=== PATIENT | female | born 1955 | race Caucasian/White ===

== ENCOUNTER 2025-08-17 04:01 | Inpatient (IN) | payer MEDICARE ==
[2025-08-17] VITALS (7 sets, daily range): BP systolic 113–126; BP diastolic 59–71; PULSE 64–118; RESP 12–30; TEMP 97.1–98.4; O2SAT 96–100
[~2025-08-17] VITALS: Ht 162.6 cm; Wt 96.3 kg
--- NOTE | 2025-08-17 04:08 | Physician Documentation ---
History of Present Illness ~ Stated Complaint: MULTIPLE COMPLAINTS Time Seen by MD: 04:05 HPI Patient presents to the emergency room as a transfer from [facility] for acute kidney injury. Patient initially presented to their facility for concerns of diarrhea been on the past week leading to weakness and falls at home. Patient was found covered in feces. Found to be significant hyperkalemia in management of hyperkalemia was initiated with improvement. Of note patient was found to be hypotensive by transfer crew he had began Levophed in route. Patient given antibiotics for cellulitis of the lower extremities. She has received 3 L of IV fluids. Medication Reconciliation Allergies: Coded Allergies: Penicillins (Verified Allergy, Unknown, 08/17/25) codeine (Verified Allergy, Unknown, 08/17/25) levofloxacin (Verified Allergy, Unknown, 08/17/25) morphine (Verified Allergy, Unknown, 08/17/25) Scheduled Atorvastatin Calcium* (Lipitor*), 1 TAB PO HS, (Reported) Clopidogrel Bisulfate (Clopidogrel), 1 TAB PO DAILY, (Reported) Review of Systems ROS All review of systems negative except as per HPI Physical Exam Physical Exam General: Patient is ill-appearing, slow to respond but appropriate. Head: Normocephalic and atraumatic. Eyes: Conjunctival normal. EOMI. PERRL. ENT: Mucous membranes moist. Neck: Supple, trachea is midline. Chest: Clear to auscultation bilaterally without rales, rhonchi, or wheezes. There is no accessory muscle use or retractions. Cardiac: RRR without murmurs, gallops, or rubs. Abd: Soft, nondistended, nontender, with normoactive bowel sounds. No guarding, rebound, or rigidity. Extremities: Chronic appearing cellulitic infections of bilateral lower extremities along with pressure ulcers on heels Back: Partial-thickness pressure ulcer on coccyx. Progress Results/Orders Results/Orders Orders - JUNIOR WELCH MD Monitor (08/17/25 04:03) Saline Lock (08/17/25 04:03) Oxygen (08/17/25 04:03) Chest,Single View (08/17/25 04:30) Culture Blood (08/17/25 04:24) Completed Orders - JUNIOR WELCH MD Cbc/Diff (08/17/25 04:03) BMP (08/17/25 04:03) PBNP (08/17/25 04:03) Electrocardiogram (08/17/25 04:03) Hs Troponin I W Calculations (08/17/25 04:03) Hs Troponin I W Calculations (08/17/25 06:03) Hs Troponin I W Calculations (08/17/25 07:03) MG (08/17/25 04:05) Norepinephrine 32mg/250ml Bag (Norepinep (08/17/25 04:10) Chest,Single View (08/17/25 04:30) Dextrose 50%-Water (Dextrose 50%-Water S (08/17/25 04:15) Norepinephrine 8mg/ 250ml Ns (Norepineph (08/17/25 04:20) Procalcitonin (08/17/25 04:24) Lacticsepsis (08/17/25 04:24) Ceftriaxone/S4c-Riwwxjlu 1gm (Rocephin 1 (08/17/25 05:40) Normal Saline 1000ml (0.9% Sodium Chlori (08/17/25 05:47) Dexamethasone Inj (Decadron 10mg/Ml Inj) (08/17/25 06:02) Vital Signs 08/17/25 08/17/25 08/17/25 08/17/25 04:02 04:28 04:30 04:46 Temp 98.4 96.1 Pulse 106 110 100 Resp 12 17 30 12 B/P (MAP) 141/99 107/81 (90) 126/71 (89) 87/43 (58) Pulse Ox 100 99 100 100 O2 Delivery Room Air O2 Flow Rate 5.0 2.0 08/17/25 08/17/25 08/17/25 08/17/25 05:02 05:19 06:14 06:48 Pulse 89 93 99 Resp 17 10 12 13 B/P (MAP) 100/51 (67) 85/45 (58) 105/28 (53) Pulse Ox 100 99 96 O2 Flow Rate 0 0 08/17/25 08/17/25 08:07 09:46 Pulse 82 82 Resp 12 22 B/P (MAP) 105/54 (71) 118/60 (79) Pulse Ox 96 100 Laboratory Tests Test 08/17/25 04:11 08/17/25 04:30 08/17/25 04:40 08/17/25 06:16 Glucometer 69 L 167 H 117 H White Blood Count 13.1 H Red Blood Count 3.51 L Hemoglobin 10.2 L Hematocrit 32.9 L Mean Corpuscular Volume 93.8 Mean Corpuscular Hemoglobin 28.9 Mean Corpuscular Hemoglobin Concent 30.9 L Red Cell Distribution Width 19.4 H Platelet Count 104 L Mean Platelet Volume 7.8 Neutrophils (%) (Auto) 90.3 H Lymphocytes (%) (Auto) 3.9 L Monocytes (%) (Auto) 5.3 Eosinophils (%) (Auto) 0.2 Basophils (%) (Auto) 0.3 Neutrophils # (Auto) 11.8 H Lymphocytes # (Auto) 0.5 L Monocytes # (Auto) 0.7 Eosinophils # (Auto) 0.0 Basophils # (Auto) 0.0 CBC Comment Sodium Level 134 L Potassium Level 6.3 *H Chloride Level 104 Carbon Dioxide Level 16.0 L Anion Gap 14 Blood Urea Nitrogen 70 H Creatinine 3.71 H Estimated GFR/1.73 m2 12 BUN/Creatinine Ratio 18.9 Glucose Level 231 H Calcium Level 7.3 L Magnesium Level 2.3 Troponin I High Sensitivity 12 Pro-B-Type Natriuretic Peptide 8613 H Albumin 1.9 L Procalcitonin 0.69 H Chemistry Comments Test 08/17/25 06:38 08/17/25 07:06 08/17/25 08:01 08/17/25 10:16 Lactic Acid Level 1.3 Phosphorus Level 6.0 H Troponin I High Sensitivity 13 13 Troponin I High Sens Percent Delta 8 0 Troponin I Hi Sens Absolute Change 1 0 Glucometer 117 H Urine Specimen Description Slaughter cath Urine Color Yellow Urine Clarity Clear Urine pH 6.0 Urine Specific [place] 1.010 Urine Protein Trace Urine Glucose (UA) Negative Urine Ketones Negative Urine Occult Blood Trace-intact Urine Nitrite Negative Urine Bilirubin Negative Urine Urobilinogen 0.2 Urine Leukocyte Esterase Small H Urine RBC 3-10 Urine WBC 30-50 H Urine Squamous Epithelial Cells Few Urine Transitional Epithelial Cells Few Urine Bacteria 3+ Urine Mucus Few Urine Culture Indicated Indicated Volume Urine Centrifuged 10 ml Urine Comment Urine Opiates Screen Negative Urine Methadone Screen Negative Urine Fentanyl Screen Negative Urine Barbiturates Screen Negative Urine Phencyclidine Screen Negative Urine Amphetamines Screen Negative Urine Benzodiazepines Screen Negative Urine Cocaine Screen Negative Urine Cannabinoids Screen Negative Drug Screen Comment Microbiology Date/Time Source Procedure Growth Status 08/17/25 06:11 Blood Arm Right Blood Culture - Preliminary NEGATIVE (LESS THAN 24 HOURS) Resulted EKG/XRAY/CT/US/VASC/MRI EKG : Additional Comment EKG interpreted by myself shows time of 0408, rate 103, sinus tachycardia, normal axis, no ST changes Medical Decision Making Additional information obtaine: old records Findings Patient presents to the emergency room for evaluation of acute kidney injury transferred from [facility]. Patient arrived on Levophed and wass hypotensive and altered. She is having a problem with hypoglycemia and responded well to sugar boluses. Levophed has been weaned off but remains borderline. Rocephin added. Oncoming physician to take over case. General Diff Dx:Considerations: Include: Abrasion, Contusion, Fracture, Hematoma, Laceration, Malunion, Neurovascular injury, Open fracture, Sprain, Ulcer, Other Knee Diff Dx:Considerations: Include: Abrasion, Arthritis, Contusion, DJD, Fr acture-femur, Fracture-fibula, Fracture-patella, Fracture-tibia, Gout, Hematoma, Laceration, Meniscus injury, Neurovascular injury, Open fracture, Rheumatoid arthritis, Septic, Sprain, Sprain-MCL, Sprain-LCL, Sprain-ACL, Sprain-PCL, Other Ankle Diff Dx:Considerations: Include: Abrasion, Arthritis, Contusion, DJD, Fracture-metatarsal, Fracture-fibula, Fracture-tarsal, Fracture-tibia, Gout, Hematoma, Laceration, Malunion, Neurovascular injury, Nonunion, Open fracture, Osteomyelitis, Rheumatoid arthritis, Sprain, Septic, Ulcer, Other Foot Diff Dx:Considerations: Include: Abrasion, Arthritis, Cellulitis, Contusion, Dislocation, DJD, Fracture-metatarsal, Fracture-phalynx, Fracture- tarsal, Gout, Hematoma, Ingrown toenail, Laceration, Malunion, Neurovascular injury, Open fracture, Paronychia, Puncture, Rheumatoid, Sprain, Septic, Subungual hematoma, Ulcer, Other Toe Diff Dx:Considerations: Include: Abrasion, Cellulitis, Contusion, Dislocation, Felon, Fracture, Hematoma, Laceration, Neurovascular injury, Open fracture, Paronychia, Subungual hematoma, Other Departure Admitted to Inpatient Unit: yes, to hospitalist Impression: Primary Impression: Acute kidney injury Additional Impressions: Metabolic encephalopathy Sepsis Decubitus ulcer Hyperkalemia Referrals: NO PRIMARY CARE PROVIDER (PCP) Critical Care Note Total Time (mins): 45 Critical Care Note The very real possibility of a deterioration of this patient's condition required the highest level of my preparedness for sudden, emergent intervention. I provided critical care services, which included medication orders, frequent reevaluations of the patient's condition and response to treatment, ordering and reviewing test results, and discussing the case with various consultants. Excludes time spent performing separately billable procedures. The critical care time associated with the care of the patient was 45 minutes not counting procedures Signature Scribe Signature: No scribe Attestation: The note accurately reflects work and decisions made by me.Junior Welch MD 08/17/25 18:31 JUNIOR WELCH MD Aug 17, 2025 04:08
[2025-08-17] MEDS ORDERED: NORepinephrine 32mg/250mL bag 250 ML IV SCH (04:10)
[2025-08-17] MEDS: dextrose 50%-water 50ml dispensing syringe IV ONE ×2 (04:18→12:07)
[2025-08-17] MEDS: NORepinephrine 8mg/ 250ml NS 250 ML IV ONE (04:20)
--- NOTE | 2025-08-17 04:47 | ELECTROCARDIOGRAPH REPORT ---
[facility] Test Date: 2025-08-17 Test Time: 04:08:55 Pat Name: AV SWAN Department: EMERGENCY ROOM Room: [place] [address] Gender: F Acoustic Engineer: : [id number] Requested By: EDI COLON Order Number: [id number] Reading MD: Dr. Artemio Fernandez Measurements Intervals [place] Rate: 103 P: 131 AL: 172 QRS: 124 QRSD: 98 T: 57 QT: 364 QTc: 477 Interpretive Statements Right and left arm electrode reversal, interpretation assumes no reversal Sinus tachycardia Anterior infarct, old Borderline ST depression, diffuse leads Electronically Signed On 08-19-2025 7:41:[address] Artemio Fernandez Please click the below link to view image of tracing.
--- NOTE | 2025-08-17 04:47 | RADIOLOGY REPORT ---
CHEST RADIOGRAPH Indication: admission Technique: Single frontal view of the chest was obtained COMPARISON: None FINDINGS: Lines and Tubes: None Lungs: Clear Pleura: No effusion. No pneumothorax. Cardiomediastinal contours: Cardiomegaly status post median sternotomy. Bones: Unremarkable IMPRESSION: 1. Cardiomegaly.
[2025-08-17] MEDS: normal saline 1000ML IV soln IVB STA (05:51)
[2025-08-17] MEDS ORDERED: CLOP75TA33 PO (05:52)
[2025-08-17] MEDS ORDERED: ATOR40TA PO (05:52)
[2025-08-17 05:57] LABS: CREATININE 3.71 MG/DL (0.40-0.90); PRO BRAIN NATRIURETIC PEPTIDE 8613 PG/ML (0-125); TOTAL CARBON DIOXIDE 16.0 MMOL/L (24-32); eCRCL 13 ML/MIN; eGFR 12 ML/MIN
[2025-08-17 06:01] LABS: MEAN PLATELET VOLUME 7.8 FL (7.4-10.4); RED CELL DISTRIBUTION WIDTH 19.4 % (11.5-14.5)
[2025-08-17] MEDS ORDERED: dexamethasone sod phosphate 10mg/ml inj IV STA (06:02)
[2025-08-17] MEDS: CefTRIAXone/D5W-Rocephin 1gm 50 ML IV ONE (06:08)
[2025-08-17] MEDS: dexamethasone sod phosphate 10mg/ml inj IV STA (06:11)
[2025-08-17] MEDS: sodium bicarbonate (8.4%) inj. 150 MEQ in dextrose 5%-water 1,000 ML IV SCH (06:28)
[2025-08-17] MEDS: PATIROMER CALCIUM SORBITEX 8.4 GM POWD.PACK PO ONE (06:59)
[2025-08-17] MEDS: normal saline 1000ML IV soln IVB ONE ×2 (07:27→08:31)
[2025-08-17] MEDS: glucagon, human recombinant 1mg kit IV ONE (08:32)
--- NOTE | 2025-08-17 09:48 | HISTORY AND PHYSICAL ---
History & Physical Providers to Chief complaint, Generalized weakness ~ History of Present Illness Reason for Admit\Complaint: As above History of Present Illness This is a 69 years old white female with history of chronic kidney disease stage four, used to be on hemodialysis, last hemodialysis was six months ago, as of today is not on hemodialysis, history of anemia hemoglobin 10.2, metabolic acidosis, bilateral lower extremity cellulitis, atrial fibrillation on Plavix at home, dyslipidemia, elevated phosphorous, history of diabetes mellitus type 2 poor control, CHF ejection fraction unknown, hypoalbuminemia, coronary artery disease CABG, presented today to emergency department chief complaint generalized weakness associated with altered level of consciousness and diarrhea, in addition Patient presents to the emergency room as a transfer from [facility] for acute kidney injury. Patient initially presented to their facility for concerns of diarrhea been on the past week leading to weakness and falls at home. Patient was found covered in feces. Found to be significant hyperkalemia in management of hyperkalemia was initiated with improvement. Of note patient was found to be hypotensive by transfer crew he had began Levophed in route. Patient given antibiotics for cellulitis of the lower extremities. She has received 3 L of IV fluids. In emergency department patient was evaluated by And diagnosed with sepsis, acute renal failure, started on IV antibiotics, and after consultation with metal alloy scientist, decision was made to admit patient for further evaluation and treatment . No additional complaint or concern Allergies: Coded Allergies: Penicillins (Verified Allergy, Unknown, 08/17/25) codeine (Verified Allergy, Unknown, 08/17/25) levofloxacin (Verified Allergy, Unknown, 08/17/25) morphine (Verified Allergy, Unknown, 08/17/25) Active prescriptions I reviewed reconciled Home Medications Home Medications Active Reported Clopidogrel (Clopidogrel Bisulfate) 75 Mg Tablet 1 Tab PO DAILY 30 Days Lipitor* (Atorvastatin Calcium) 40 Mg Tablet 1 Tab PO HS 30 Days Past Medical History Past Medical History As in HPI Past Surgical History Surgical History Comment As in HPI Past Social History Social History Comment Live with the family good social support deny illicit drug abuse tobacco alcohol use Health Maintenance Health Maintenance Noncontributory ROS ROS Constitutional : no fever , no chills, fatigue for weakness. No diaphoresis. Allergic/Immunologic, no lymphadenopathy, no hives, no skin eruptions. Eyes, no recent visual changes, no eye pain, no photophobia. Ears, nose, mouth, throat, no sore throat, no nosebleed, no ear pain. Cardiovascular, no palpitations, skipped beats, chest pain, no peripheral edema, Respiratory, no dyspnea, orthopnea, cough, hemoptysis, chest wall pain. Gastrointestinal, no abdominal pain, nausea, vomiting, constipation or diarrhea. : no dysuria, hematuria, pelvic pain, urethral d/c. Endocrine, no polyuria, polydipsia, recent unintentional weight gain or loss. Hematologic/Lymphatic, no petechiae, no enlarged lymph nodes, no bone pain. Integumentary, no rash, no skin lesions, Musculoskeletal, no muscle aches, or pain, no muscle cramps, no recent change in gait Neurological, no dizziness, no headache, no syncope, no paresthesia. Psychiatric, no delusions, visual hallucinations, or hearing hallucinations. ROS - in rest is as in HPI. Exam Vitals: Generalized Vital Signs Date Time Temp Pulse Resp B/P (MAP) Pulse Ox O2 Delivery O2 Flow Rate FiO2 08/17/25 09:46 82 22 118/60 (79) 100 08/17/25 06:14 0 08/17/25 04:46 96.1 Vital signs, stable ,afebrile. Pulse Oximetry reflects adequate oxygenation. BMI is 35, weight 96 kg General: well developed, well nourished. Awake , alert, and oriented x4, resting comfortably in the bed, in no acute distress . Skin: Warm, dry, no pallor, no rash or petechiae. HEENT: Atraumatic, normocephalic, EOMI, anicteric sclera B; pink conjunctiva; PERRLA, normal oropharynx, moist oral and nasal mucosa. Tympanic membrane , nose , throat clear. Neck: Trachea midline. Supple, full range of motion, no JVD, bruit , hepatojugular reflex , lymphadenopathy or masses, or other lesions Cardiac: Regular rhythm, regular rate no murmurs, rubs, or gallops. Normal S1 and S2, no S3 noticed. PMI is normal. Respiratory: Equal breath sounds bilaterally, no tachypnea; lungs clear to auscultation bilaterally, no wheezing ,rub or rales, or crackles. Chest wall is symmetric and without deformity. No signs of trauma. Chest wall is nontender. No signs of respiratory distress. Resonance is normal upon percussion bilaterally. Gastrointestinal: Abdomen symmetric, non-distended, soft, non-tender, normal bowel sounds x4 quadrant, normoactive, no hepatosplenomegaly , no masses , no bruit, no flank pain bilaterally. No voluntary guarding, rebound, or rigidity. No tenderness to percussion. No pulsatile masses. Equal femoral pulses. No Sin's sign or McBurney point tenderness. Back; no CVA tenderness bilaterally, no deformities. Neck and back are without deformity as well. No tenderness noted on palpation of the spinous processes. Spinous processes are midline. Cervical, thoracic, and lumbar paraspinal muscles are not tender and are without spasm. : Deferred by patient Musculoskeletal: Extremities, normal range of motion, non-tender, muscle strength 5/5 x 4. Negative Homans signs bilaterally on lower extremity. Distal pulses full symmetrical, no clubbing, cyanosis , , bilateral lower extremity plus four edema up to the thigh, associated with bilateral lower leg erosive dermatitis and cellulitis Neurological: Speech is clear, alert, and oriented x 4. No motor or sensory deficit, deep tendon reflexes normal, cerebellar intact. Cranial nerves II-XII intact. Psych: Alert and or appropriate, normal affect. Vascular: Good distal pulses, which are equal x4; capillary refill less than 2 seconds. Lymphatic, no lymphadenopathy. Diagnostic Data Last Recorded Lab Results: 08/17/2542908/17/25 043 Advance Care Planning Advanced Care plannin - 30 Minutes Additional Plan Assessment Complicated UTI Acute nonbloody diarrhea Bilateral lower extremity erosive dermatitis Bilateral lower extremity cellulitis Chronic kidney disease stage 4 used to be on hemodialysis, last hemodialysis six months ago Acute renal failure Hyperkalemia Sepsis Metabolic acidosis CHF in exacerbation ejection fraction unknown Diabetes mellitus type 2 poor control Additional comorbidities, hypoalbuminemia, hyperphosphatemia, atrial fibrillation on Plavix at home, dyslipidemia, anemia hemoglobin 10.2, coronary artery disease status post CABG, generalized weakness status post fall ground level mechanical, metabolic encephalopathy Plan Correct electrolytes IV antibiotics, fluids prn Nephrology Is on the case Sliding scale Wound care consult Echocardiography pending Hyperglycemia sliding scale Additional lab work pending PT evaluation and treatment I reconciled home Medications DVT gastropathy prophylaxis addressed Sepsis Screening Reassessment Date: Aug 17, 2025 Date of Service: Aug 17, 2025 Billing Provider: SHAWNA ALMEIDA MD Common Visit Codes: [id number] INP/OBS CARE (HIGH) SHAWNA ALMEIDA MD Aug 17, 2025 09:48
[2025-08-17] MEDS ORDERED: furosemide 10 MG/1 ML 10ml inj IV SCH (10:10)
[2025-08-17] MEDS ORDERED: mag hydrox/Alum hydrox/simeth 30ml oral suspension PO PRN (10:25)
[2025-08-17] MEDS ORDERED: potassium Cl 40MEQ/1/2NS 520ml 520 ML IV PRN (10:25)
[2025-08-17] MEDS ORDERED: magnesium sulf-water 2g/50mL 50 ML IV PRN (10:25)
[2025-08-17] MEDS ORDERED: magnesium Cl slow-release 64mg tablet PO PRN (10:25)
[2025-08-17] MEDS ORDERED: acetaminophen 650mg rectal suppository RC PRN (10:25)
[2025-08-17] MEDS ORDERED: magnesium sulf-water 4G/100mL 100 ML IV PRN (10:25)
[2025-08-17] MEDS ORDERED: bisacodyl 10mg suppository rectal RC PRN (10:25)
[2025-08-17] MEDS ORDERED: potassium Cl 20 mEq SR tablet PO PRN ×2 (10:25)
[2025-08-17] MEDS ORDERED: magnesium hydroxide 30ml (MOM) UD suspension PO PRN (10:25)
[2025-08-17 10:40] LABS: LEUKOCYTE ESTERASE ,URINE SMALL (Neg); NITRITES, URINE NEGATIVE (Neg); OCCULT BLOOD,URINE TRACE-INTACT (Neg)
[2025-08-17 10:42] LABS: UA COLLECTION TYPE FOLEY CATH
[2025-08-17 10:49] LABS: MUCUS STRANDS FEW /LPF (Neg); SQUAMOUS EPITHELIAL CELL,UR FEW /LPF (FEW)
[2025-08-17 10:53] LABS: URINE AMPHETAMINE SCREEN NEGATIVE (Neg); URINE BARBITUATE SCREEN NEGATIVE (Neg); URINE BENZODIAZEPINES SCREEN NEGATIVE (Neg); URINE CANNABINOID SCREEN NEGATIVE (Neg); URINE COCAINE SCREEN NEGATIVE (Neg); URINE METHADONE SCREEN NEGATIVE (Neg); URINE OPIATE SCREEN NEGATIVE (Neg); URINE PHENCYCLIDINE SCREEN NEGATIVE (Neg)
[2025-08-17] MEDS ORDERED: DEXTROSE 15 GM of carb/4 tabs (each vial/BOTTLE has 4 tablets) PO PRN ×2 (11:05)
[2025-08-17] MEDS ORDERED: glucagon, human recombinant 1mg kit SUBCUT PRN (11:05)
[2025-08-17] MEDS ORDERED: dextrose 50%-water 50ml dispensing syringe IV PRN ×2 (11:05)
[2025-08-17] MEDS ORDERED: CALCIUM GLUC 1gm/50ml NACL,iso 50 ML IV PRN (11:05)
[2025-08-17 11:08] LABS: APTT 30 SECONDS (22-32); INR 1.2 INR
--- NOTE | 2025-08-17 11:26 | CONSULTATION REPORT - RESIDENT ---
Consult Providers to CC Resident Creating Document: CHARIS LARES, RES CC: DERRELL MANLEY MD History of Present Illness Primary Medical Doctor: [facility] Reason for Admit\Complaint: LARON + CKD 4 History of Present Illness Nephrology consult: This is a 69 years old white female with history of chronic kidney disease stage 4, CAD s/p CABG in February 2025, used to be on hemodialysis, last hemodialysis was six months ago, as of today is not on hemodialysis, history of anemia hemoglobin 10.2, metabolic acidosis, bilateral lower extremity cellulitis, atrial fibrillation on Plavix at home, dyslipidemia, , history of diabetes mellitus type 2 poor control, CHF ejection fraction unknown, hypoalbuminemia, coronary artery disease CABG, transferred from [facility] in view of acute kidney injury.Patient Has a History of CKD IV and Her last dialysis was 6 months ago. Patient also has elevated K, Bilateral Lower Extremity Ulcers and Cellulitis. Patients BUN was 77, Cr-3.68, Ca-11,4, K 6.3 at [facility]. Patient Takes Metaprolol Succinate 50mg daily, Lasix 40mg Daily at home additionally takes 20mg Po when ever patient feels short of breath,Spironolactone 25mg daily for CHF We, Nephrology team evaluated the patient at bedside and recommended consideration of dialysis. She is ofcourse reluctant. Meanwhile will arrange for diuresis, and chec the echocardiogram. The patient stated that she would like some time to discuss the discussion with her before proceeding. The risk of delayed dialysis including potential worsening of renal function, fluid overload, and metabolic complications were explained to the patient in detail and she verbalized understanding of the information provided Allergies: Coded Allergies: Penicillins (Verified Allergy, Unknown, 08/17/25) codeine (Verified Allergy, Unknown, 08/17/25) levofloxacin (Verified Allergy, Unknown, 08/17/25) morphine (Verified Allergy, Unknown, 08/17/25) Home Medications Home Medications Active Reported Clopidogrel (Clopidogrel Bisulfate) 75 Mg Tablet 1 Tab PO DAILY 30 Days Lipitor* (Atorvastatin Calcium) 40 Mg Tablet 1 Tab PO HS 30 Days Past Medical History Past Medical History Congestive heart rate Diabetes mellitus type 2 Hypertension paroxysmal atrial fibrillation Past Surgical History Surgical History Comment CABG 03/17/2025 Cholecystectomy Hysterectomy Ovarian removal Shoulder arthroscopy Foot fracture surgery ROS ROS As stated above in the HPI, otherwise all systems are reviewed and negative. Exam Vitals: Vital Signs Date Time Temp Pulse Resp B/P (MAP) Pulse Ox O2 Delivery O2 Flow Rate FiO2 08/17/25 11:14 94 14 124/70 (88) 98 08/17/25 06:14 0 08/17/25 04:46 96.1 General: General: Awake, drowzy, in acute distress Head: Normocephalic and atraumatic. Eyes: Mild pallor, extraocular eye movements are intact, no icterus ENT: Mucous membranes moist, no epistaxis, Neck: Supple, trachea is midline. Chest: Clear to auscultation bilaterally without rales, rhonchi, or wheezes. There is no accessory muscle use or retractions. Cardiac: S1 and S2 heard, no murmurs, gallops, or rubs. Abd: Soft, nondistended, nontender, with normoactive bowel sounds. No guarding, rebound, or rigidity. Extremities: Chronic appearing cellulitic infections of bilateral lower extremities along with pressure ulcers on heels Back: Partial-thickness pressure ulcer on coccyx. Diagnostic Data Last Recorded Lab Results: 08/17/25 0430 08/17/25 1041 Diagnostic Data: Laboratory Tests Test 08/17/25 10:41 Prothrombin Time 12.0 SECONDS (9.0-12.0) INR International Normalized Ratio 1.2 INR Activated Partial Thromboplast Time 30 SECONDS (22-32) Coagulation Comments Additional Plan Acute kidney injury on Chronic kidney disease stage 4 Complicated UTI Patient baseline creatinine-unknown Creatinine 3.7, BUN 70, BUN/creatinine-18.9, pro BNP-8000, potassium-6.5, Urinalysis-+3 bacteria,trace protein Arterial USG shows: Rt popliteal artery and Rt Pisterior tibial artery, Left lower extremity inflow disease, Unable to visualize the left popliteal artery and left profunda femoral artery due to patient body habitus. No ankle-brachial index due to weeping open wounds. Continue IV dextrose 5% water (with sodium bicarb) 75 mL/hour Started IV furosemide 40 mg q.6h recommended to consider dialysis. She is reluctant which is understandable. will work her up serologically, and diurese her, check echocardiogram to assess her LVEF. The patient stated that she would like some time to discuss the discussion with her before proceeding. The risk of delayed dialysis including potential worsening of renal function, fluid overload, and metabolic complications were explained to the patient in detail and she verbalized understanding of the information provided CHF in exacerbation ejection fraction unknown UTI-complicated Acute nonbloody diarrhea Bilateral lower extremity erosive dermatitis Bilateral lower extremity cellulitis Hyperkalemia Sepsis Metabolic acidosis Paroxysmal atrial fibrillation Diabetes mellitus type 2 Continue according to primary caregivers plan Diet-75 g carb control Code-full DVT prophylax-heparin subQ Disposition-continue monitoring patient CBC/CMP Charis Lares PGY1-Internal Medicine Resident Nephrology attending: Agree with above. patient seen and examined with resident . care plan reviewed. reviewed the above H and P. aggressive diuresis first. derrell Manley MD Date of Service: Aug 17, 2025 Billing Provider: DERRELL MANLEY MD, SATISH, RES Aug 17, 2025 11:26 DERRELL MANLEY MD Aug 17, 2025 18:10
[2025-08-17] MEDS: HYDROmorphone inj. 0.5 MG/0.5 ML DISP.SYRIN IV PRN (11:50)
[2025-08-17] MEDS: normal saline 1000ml 1,000 ML IV SCH (11:52)
[2025-08-17] MEDS: SODIUM ZIRCONIUM CYCLOSILICATE 10 GM POWD.PACK PO ONE (11:55)
[2025-08-17] MEDS: INSULIN LISPRO 100 UNIT/ML INSULN.PEN MULTI-DOSE SQ SCH (12:00)
[2025-08-17] MEDS: sodium bicarbonate (8.4%) 1 mEq/ml syringe IV ONE (12:04)
[2025-08-17] MEDS: sodium polystyrene sulfonate 15gm/60ml oral suspension PO ONE (12:15)
[2025-08-17] MEDS: insulin regular, human 10 units/0.1 ml syringe IV ONE (12:15)
[2025-08-17] MEDS: albuterol 2.5 MG/3 ML nebule NEB ONE (13:13)
--- NOTE | 2025-08-17 15:32 | VASCULAR REPORT ---
BILATERAL Lower Extremity Arterial Duplex Date: 08/17/2025 12:43 PM Clinical History: Open wounds/pain Comparison: None Technique: Duplex Doppler evaluation including color Doppler and spectral/pulsed waveform analysis of the lower extremity arteries was performed. Lower extremity pain/open wounds Risk Factors Obesity Cardiac Disease Diabetes VELOCITY AND DOPPLER WAVEFORM ANALYSIS RIGHT cm/se Waveform Severity LEFT cm/se Waveform Severity c c dCFA 140.6 Multiphasic dCFA 126.0 Monophasic Prof Fem 105.0 Multiphasic Prof Fem Art. Art. Fem Art 145.7 Monophasic Fem Art 141.3 Monophasic Prox. Prox. Fem Art 140.6 Monophasic Fem Art 104.3 Monophasic Mid Mid. Fem Art 72.0 Monophasic Fem Art 74.0 Monophasic Dist. Dist. Pop Art(BK) 0.0 Occluded Occluded Pop Art(BK) PECAN HULLER Dist. 0.0 Occluded Occluded PECAN HULLER Dist. 20.8 Monophasic THONG Dist. 107.0 Monophasic THONG Dist. 69.0 Monophasic CONCLUSION Technically difficult exam due to patient body habitus. The right popliteal artery and right posterior tibial artery appear occluded. Monophasic waveforms noted throughout the majority of the right lower extremity and entirety of the left lower extremity, suggesting possible left lower extremity inflow disease. Irregular lumen size noted throughout the lower extremities bilaterally. Unable to visualize the left popliteal artery and left profunda femoral artery due to patient body habitus. No ankle-brachial index due to weeping open wounds.
[2025-08-17 17:44] LABS: C DIFF ANTIGEN NEGATIVE (NEGATIVE); C DIFF SPECIMEN=DIARRHEA? ACCEPTABLE; C DIFFICILE TOXINS A&B NEGATIVE (Neg)
[2025-08-17] MEDS ORDERED: albuterol 2.5 MG/3 ML nebule CONTNEB PRN (18:15)
--- NOTE | 2025-08-17 18:40 | CARDIOLOGY REPORT ---
APPROVED REPORT EXAM: Comprehensive 2D, Doppler, and color-flow Echocardiogram. Patient Location: ER RM 5 Blood Pressure: 100/72 mmHg Heart Rate: 113-138 bpm Indications Congestive Heart Failure ProBNP: 8613 Hypotension Coronary Artery Disease Stent x 1 (03/17/25, [place], [place]) Aortic Valve Replacement (03/17/25, [place], per patient) Mitral Valve Replacement (03/17/25, [place], per patient) BUSINESS PLANNING MANAGER: Vikash in [place], [place], per patient Previousd Unavailable 2D Dimensions LA Diam 4.6 cm IVSd 0.8 (0.7-1.1cm) LVDd 3.9 cm PWd 1.4 (0.7-1.1cm) IVSs 1.0 (0.8-1.2cm) LVDs 2.9 (2.5-4.0cm) PWs 1.8 (0.8-1.2cm) LVEF(%) 51.3 (>50%) Ao Asc Diam. 1.87 cm IVC 26.07 mm FS (%) 25.7 % SV 33.2 ml CO 3.0 L/min M-Mode Dimensions Left Atrium(MM) 4.82 (2.5-4.0cm) Aortic Root 2.37 (2.2-3.7cm) Aortic Valve AoV Peak Brad. 210.3 cm/s AoV VTI 39.6 cm AO Peak GR. 17.7 mmHg AO Mean GR. 9 mmHg LVOT VTI 18.72 cm LVOT Peak Brad. 79.6 cm/s AV DI 0.47 % Mitral Valve MV Peak Gr. 15 mmHg MV Mean Gr. 5 mmHg MV PHT 68 ms MVA (PHT) 3.24 cm2 MV VMax 194.9 cm/s MV VMean 93.8 cm/s MV VTI 37.9 cm TDI Lateral E' P. V 10.76 cm/s Tricuspid Valve TR P. Velocity 205 cm/s RAP ESTIMATE 10 mmHg TR Peak Gr. 17 mmHg RVSP 27 mmHg LEFT VENTRICLE Normal LV size and wall thickness. Overall systolic function is low normal. LVEF is 50-55%. RIGHT VENTRICLE Right ventricle is moderately dilated with normal function. ATRIA Left atrium is moderately dilated. AORTIC VALVE Bioprosthetic AVR appears well seated with normal function. Peak / mean gradients of 18 / 9 mmHG. Peak velocity is measured at 2.10 m/sec. No Insufficiency. MITRAL VALVE Bioprosthetic MVR appears well seated with normal function. Peak / mean gradients of 15 / 5 mmHG. Trace regurgitation. TRICUSPID VALVE The tricuspid valve is normal in structure with severe regurgitation. PULMONIC VALVE Pulmonic valve is grossly normal in structure with trace insufficiency. GREAT VESSELS The aortic root is normal in size. The ascending aorta is normal in size. IVC is dilated and collapses less than 50% with inspiration. PERICARDIUM Normal pericardium. No effusion. Other Information Study Quality: Fair due to body habitus, poor apical views. Conclusion Normal LV size and wall thickness. Overall systolic function is low normal. LVEF is 50-55%. Right ventricle is moderately dilated with normal function. Left atrium is moderately dilated. Bioprosthetic AVR appears well seated with normal function. Peak / mean gradients of 18 / 9 mmHG. Peak velocity is measured at 2.10 m/sec. No Insufficiency. Bioprosthetic MVR appears well seated with normal function. Peak / mean gradients of 15 / 5 mmHG. Trace regurgitation. The tricuspid valve is normal in structure with severe regurgitation. Pulmonic valve is grossly normal in structure with trace insufficiency. Normal pericardium. No effusion.
[2025-08-17] MEDS: docusate sod 100mg capsule PO SCH (20:00)
[2025-08-17] MEDS ORDERED: K and/or MAG REPLACEMENT MC SCH (20:00)
[2025-08-17] MEDS: heparin, porcine 5000 units/ml vial SQ SCH (20:44)
[2025-08-17 21:47] LABS: CREATININE 3.49 MG/DL (0.40-0.90); TOTAL CARBON DIOXIDE 19.2 MMOL/L (24-32); eCRCL 13 ML/MIN; eGFR 13 ML/MIN
[2025-08-17] MEDS: insulin glargine (Lantus) pen - multi-dose SQ SCH (21:53)
[2025-08-17] MEDS: SODIUM ZIRCONIUM CYCLOSILICATE 10 GM POWD.PACK PO SCH (23:16)
[2025-08-18] VITALS (9 sets, daily range): BP systolic 96–114; BP diastolic 48–65; PULSE 89–106; RESP 14–18; TEMP 97–98.1; O2SAT 96–98
[2025-08-18 01:40] LABS: MEAN PLATELET VOLUME 7.4 FL (7.4-10.4); RED CELL DISTRIBUTION WIDTH 19.4 % (11.5-14.5)
[2025-08-18 01:56] LABS: CHOL/HDL RATIO 1.9 (0.00-4.99); CREATININE 3.45 MG/DL (0.40-0.90); LDL CHOLESTEROL 25 MG/DL (50-100); TOTAL CARBON DIOXIDE 20.9 MMOL/L (24-32); eCRCL 13 ML/MIN; eGFR 13 ML/MIN
[2025-08-18] MEDS: CefTRIAXone/D5W-Rocephin 1gm 50 ML IV SCH (08:31)
--- NOTE | 2025-08-18 13:54 | RADIOLOGY REPORT ---
CHEST RADIOGRAPH Indication: r/o TB for hemodiaysis Technique: Single frontal view of the chest was obtained Comparison: DI CHEST,SINGLE VIEW on DOS: 08/17/25 FINDINGS: Lines and Tubes: None Lungs: No focal consolidation. Pleura: No effusion. No pneumothorax. Cardiomediastinal contours: Unremarkable Bones: No acute osseous abnormality. IMPRESSION: No acute cardiopulmonary disease. No evidence for active tuberculosis.
--- NOTE | 2025-08-18 17:55 | PROGRESS NOTE ---
Progress Note Dictate Providers to CC ~ Central Line/PICC still needed: No Slaughter Indications Met/Not Met: F/C Indications Met Antibiotic Ordered?: Yes Subjective Subjective The patient is more awake. no shortness of breath today. excellent urine output. responsive to diuretics.work up for serology is in progress . She has a known Dm retinoneuropathy. So high likelihood she has Dm nephropathy as well. Echocardiogram shows 55% EF. Objective Vitals Vital Signs Date Time Temp Pulse Resp B/P (MAP) Pulse Ox O2 Delivery O2 Flow Rate FiO2 08/18/25 16:21 17 08/18/25 14:28 110/52 (71) 08/18/25 11:00 98.1 89 97 Room Air 08/17/25 13:21 0 21 Lab Results: 08/18/25 0130 08/18/25 0130 Objective Vital Signs: As above General: Normal body habitus, no acute distress. Skin: No rashes, lumps, ulcers, blisters, purpura or petechiae HEENT: Anicteric sclera, BRIDGETT Neck: Supple and nontender without enlargement of the thyroid, or lymphadenopathy. Chest: Normal size and shape, no tenderness, CTA bilaterally Heart: Regular. No jugular venous distention, S1 and S2 heard , no gallop Abdomen: Soft and non tender no organomegaly,BS+ Extremities: 3+ pedal edema Neuro: Nonfocal. Coagulation Studies Laboratory Tests Test 08/17/25 10:41 Prothrombin Time 12.0 SECONDS (9.0-12.0) INR International Normalized Ratio 1.2 INR Activated Partial Thromboplast Time 30 SECONDS (22-32) Coagulation Comments Advance Care Planning Advanced Care plannin - 30 Minutes Problem\Assessment\Plan Problems/Diagnosis: (1) Metabolic encephalopathy Assessment & Plan: clearing up slowly. She is more awake now. (2) Acute kidney injury Assessment & Plan: She has history of CKD 4. she has anasarca. We are diuresing her right now. She doesn't seem to need dialysis right away. creatinine has been holding itself. EF is 55%. Renal ADA diet. Fluid restriciton to 1.5 liters per day. Sodium restriciton to 2 g per day. NSAID avoidance is a must. (3) Hyperkalemia Assessment & Plan: getting better with diuretics. (4) Sepsis Assessment & Plan: on antibiotics. wound in her extremities are being addressed by primary team DERRELL JIN MD Aug 18, 2025 17:55
--- NOTE | 2025-08-18 18:27 | PROGRESS NOTE ---
Daily Progress Note Providers to CC Feels better today, resting comfortably in the bed ~ Central Line/PICC still needed: No Slaughter-Non Protocol Slaughter Indications Met/Not Met: F/C Indications Not Met Antibiotic Timeout Antibiotic Ordered?: Yes MRSA Education MRSA Education Provided to pt: Yes Subjective As above Objective Vital Signs Date Time Temp Pulse Resp B/P (MAP) Pulse Ox O2 Delivery O2 Flow Rate FiO2 08/18/25 16:21 17 08/18/25 14:28 110/52 (71) 08/18/25 11:00 98.1 89 97 Room Air 08/17/25 13:21 0 21 Vital signs, stable ,afebrile. Pulse Oximetry reflects adequate oxygenation. General: well developed, well nourished. Awake , alert, and oriented x4, resting comfortably in the bed, in no acute distress . Skin: Warm, dry, no pallor, no rash or petechiae. HEENT: Atraumatic, normocephalic, EOMI, anicteric sclera B; pink conjunctiva; PERRLA, normal oropharynx, moist oral and nasal mucosa. Tympanic membrane , nose , throat clear. Neck: Trachea midline. Supple, full range of motion, no JVD, bruit , hepatojugular reflex , lymphadenopathy or masses, or other lesions Cardiac: Regular rhythm, regular rate no murmurs, rubs, or gallops. Normal S1 and S2, no S3 noticed. PMI is normal. Respiratory: Equal breath sounds bilaterally, no tachypnea; lungs clear to auscultation bilaterally, no wheezing ,rub or rales, or crackles. Chest wall is symmetric and without deformity. No signs of trauma. Chest wall is nontender. No signs of respiratory distress. Resonance is normal upon percussion bilaterally. Gastrointestinal: Abdomen symmetric, non-distended, soft, non-tender, normal bowel sounds x4 quadrant, normoactive, no hepatosplenomegaly , no masses , no bruit, no flank pain bilaterally. No voluntary guarding, rebound, or rigidity. No tenderness to percussion. No pulsatile masses. Equal femoral pulses. No Sin's sign or McBurney point tenderness. Back; no CVA tenderness bilaterally, no deformities. Neck and back are without deformity as well. No tenderness noted on palpation of the spinous processes. Spinous processes are midline. Cervical, thoracic, and lumbar paraspinal muscles are not tender and are without spasm. Locally, bilateral lower extremity dressing clean dry intact Musculoskeletal: Extremities, normal range of motion, non-tender, muscle strength 5/5 x 4. Negative Homans signs bilaterally on lower extremity. Distal pulses full symmetrical, no clubbing, cyanosis , edema. Neurological: Speech is clear, alert, and oriented x 4. No motor or sensory deficit, deep tendon reflexes normal, cerebellar intact. Cranial nerves II-XII intact. Psych: Alert and or appropriate, normal affect. Vascular: Good distal pulses, which are equal x4; capillary refill less than 2 seconds. Lymphatic, no lymphadenopathy. Result Diagram: 08/18/25 01308/18/25 013 Coagulation Studies Laboratory Tests Test 08/17/25 10:41 Prothrombin Time 12.0 SECONDS (9.0-12.0) INR International Normalized Ratio 1.2 INR Activated Partial Thromboplast Time 30 SECONDS (22-32) Coagulation Comments Problem\Assessment\Plan Assessment Complicated UTI Acute nonbloody diarrhea Bilateral lower extremity erosive dermatitis Bilateral lower extremity cellulitis Lower extremity severe PVD Chronic kidney disease stage 4 used to be on hemodialysis, last hemodialysis six months ago Acute renal failure Hyperkalemia Sepsis Metabolic acidosis CHF in exacerbation ejection fraction 52% Diabetes mellitus type 2 poor control Additional comorbidities, hypoalbuminemia, hyperphosphatemia, atrial fibrillation on Plavix at home, dyslipidemia, anemia hemoglobin 10.2, coronary artery disease status post CABG, generalized weakness status post fall ground level mechanical, metabolic encephalopathy, history of aortic valve and mitral valve repair Plan Correct electrolytes IV antibiotics, fluids prn Nephrology Is on the case Hyperglycemia Sliding scale Wound care consult Echocardiography completed Vascular surgeon consultation pending Additional lab work pending PT evaluation and treatment I reconciled home Medications DVT gastropathy prophylaxis addressed Date of Service: Aug 18, 2025 Billing Provider: SHAWNA ALMEIDA MD Common Visit Codes: [id number] INP/OBS CARE(HIGH) SHAWNA ALMEIDA MD Aug 18, 2025 18:26
--- NOTE | 2025-08-18 21:54 | PROGRESS NOTE ---
Progress Note ID Providers to CC ~ Progress Note Progress Note: pt seen and examined-pt has doppler dorsalis pedal pulses bilaterally-no need for vascular intervention BORA BRAND MD Aug 18, 2025 21:54
[2025-08-19] VITALS (9 sets, daily range): BP systolic 105–122; BP diastolic 5–67; PULSE 89–106; RESP 11–19; TEMP 97.3–97.8; O2SAT 90–99
[2025-08-19] MEDS: ondansetron 4mg rapidly disintigrating tab PO PRN (08:15)
[2025-08-19 08:16] LABS: MEAN PLATELET VOLUME 7.5 FL (7.4-10.4); RED CELL DISTRIBUTION WIDTH 18.8 % (11.5-14.5)
[2025-08-19 08:38] LABS: CREATININE 2.75 MG/DL (0.40-0.90); LACTATE DEHYDROGENASE 245 U/L (81-234); TOTAL CARBON DIOXIDE 26.9 MMOL/L (24-32); eCRCL 17 ML/MIN; eGFR 17 ML/MIN
[2025-08-19 09:07] LABS: HIV ANTIBODY 1&2 RAPID NON-REACTIVE (Neg); PLATELET ESTIMATE DECREASED
[2025-08-19 09:09] LABS: ELLIPTOCYTES 1+
--- NOTE | 2025-08-19 09:32 | PROGRESS NOTE- Residence ---
Progress Note - Resident Providers to CC Resident Creating Document: CHARIS HICKS, RES ~ Central Line/PICC still needed: No Slaughter-Non Protocol Slaughter Indications Met/Not Met: F/C Indications Met Antibiotic Timeout Antibiotic Ordered?: Yes Subjective patient was examined at bedside , She reports overall improvement in her symptoms, Creatinine is improving. Patient is known Diabetic nephropathy,Diabetic neuropathy,and Diabetic retinopathy,and She also has highlikleyhood of Nephropathy Swelling in Bilateral lower and upper extremity is present, showing only mild Improvement Patient is currently on Diuretic and Maintaining good urine output Objective Vital Signs Date Time Temp Pulse Resp B/P (MAP) Pulse Ox O2 Delivery O2 Flow Rate FiO2 08/19/25 08:48 18 08/19/25 02:00 97.4 93 110/65 (80) 90 Room Air 08/18/25 20:00 0.0 21 Result Diagram: 08/19/25 0655 08/19/25 0655 GENERAL: Awake, alert, oriented x4 HEENT : Normocephalic, atraumatic, pupils equal and reactive to light, extraocular movements intact, no scleral icterus or conjunctival pallor, , oral mucosa moist NECK: neck is supple, trachea midline, no lymphadenopathy, no thyromegaly, no JV distention RESPIRATORY: Surgical scar present on chest, Chest expansion equal bilaterally, breath sounds vesicular, no wheezes, or rhonchi. No use of accessory muscles, no tenderness on palpation. CARDIOVASCULAR: S1 and S2 heard, grade 4/6 crescendo decrescendo murmur on aortic area, no rubs, or gallops ABDOMEN: Soft, nontender, nondistended, bowel sounds present and normoactive. NEUROLOGICAL: Alert, oriented, normal memory, speech is normal Cranial nerves II-XII- intacact Could not elicit strength and tone in lower extremities due to presence Pressure ulcers EXTREMITIES: Bilateral lower extremity and upper extremity Edema, Bilateral lower extrimity pressure ulcers which have dressing on it Psychiatric:Appropriate mood and affect, Coagulation Studies Laboratory Tests Test 08/17/25 10:41 Prothrombin Time 12.0 SECONDS (9.0-12.0) INR International Normalized Ratio 1.2 INR Activated Partial Thromboplast Time 30 SECONDS (22-32) Coagulation Comments Advance Care Planning Advanced Care plannin - 30 Minutes Plan Plan Metabolic encephalopathy Patient is alert, awake oriented today Patient bicarb is normal today and today held Bicard Drip Continue to monitor the patient Acute kidney injury on Chronic Kidney Disease IV Creatinine-2.75 trending down She has history of CKD 4. she has anasarca. Patient does not require No dialysis as of now Patient is currently diuresing with Lasix 40 mg daily IV. Patient is currently on Renal ADA diet with Fluid restriciton to 1.5 liters per day and Sodium restriction to 2 g per day Avoid nephrotoxic medications-NSAIDs F/p with Protineuria panel Hypokalemia/hyperkalemia Today patient potassium is 3.4, patient is on hypokalemia/hyperkalemia protocol Sepsis Complicated UTI Acute nonbloody diarrhea Bilateral lower extremity erosive dermatitis Bilateral lower extremity cellulitis Lower extremity severe PVD CHF in exacerbation ejection fraction 52% Diabetes mellitus type 2 poor control H/O CAD S/P Stent placement History of Valvular Heart Disease S/P Valve replacement Patient is currently on ABX. Manage according to the primary caregivers plan Dispostion : Patient is started on Jardiance 10mg Po daily from today , During Discharge consider adding becka Hicks PGY1-Internal Medicine Resident nephrology attending: The patient was seen and examined. care plan reviewed. doing better with continued improvement in renal function , regressing edema, and excellent urine output, with resolution of meetabolic acidosis. plan to continue diuretics, because of the edema that is still present. No eed for dialysis at this time. Rohan Jin MD Date of Service: Aug 19, 2025 Billing Provider: ROHAN JIN MD, SATISH, RES Aug 19, 2025 09:32 ROHAN JIN MD Aug 19, 2025 12:21
[2025-08-19] MEDS: oxyCODONE/APAP 5-325mg tablet PO PRN (11:42)
--- NOTE | 2025-08-19 18:45 | PROGRESS NOTE ---
Daily Progress Note Providers to CC ~ feels better today better appetite better sleep less pain Central Line/PICC still needed: No Slaughter-Non Protocol Slaughter Indications Met/Not Met: F/C Indications Not Met Antibiotic Timeout Antibiotic Ordered?: Yes MRSA Education MRSA Education Provided to pt: Yes Subjective As above Objective Vital Signs Date Time Temp Pulse Resp B/P (MAP) Pulse Ox O2 Delivery O2 Flow Rate FiO2 08/19/25 16:10 17 08/19/25 15:00 97.5 101 113/54 (73) 99 Room Air 08/19/25 08:00 0.0 21 Vital signs, stable ,afebrile. Pulse Oximetry reflects adequate oxygenation. General: well developed, well nourished. Awake , alert, and oriented x4, resting comfortably in the bed, in no acute distress . Skin: Warm, dry, no pallor, no rash or petechiae. HEENT: Atraumatic, normocephalic, EOMI, anicteric sclera B; pink conjunctiva; PERRLA, normal oropharynx, moist oral and nasal mucosa. Tympanic membrane , nose , throat clear. Neck: Trachea midline. Supple, full range of motion, no JVD, bruit , hepatojugular reflex , lymphadenopathy or masses, or other lesions Cardiac: Regular rhythm, regular rate no murmurs, rubs, or gallops. Normal S1 and S2, no S3 noticed. PMI is normal. Respiratory: Equal breath sounds bilaterally, no tachypnea; lungs clear to auscultation bilaterally, no wheezing ,rub or rales, or crackles. Chest wall is symmetric and without deformity. No signs of trauma. Chest wall is nontender. No signs of respiratory distress. Resonance is normal upon percussion bilaterally. Gastrointestinal: Abdomen symmetric, non-distended, soft, non-tender, normal bowel sounds x4 quadrant, normoactive, no hepatosplenomegaly , no masses , no bruit, no flank pain bilaterally. No voluntary guarding, rebound, or rigidity. No tenderness to percussion. No pulsatile masses. Equal femoral pulses. No Sin's sign or McBurney point tenderness. Back; no CVA tenderness bilaterally, no deformities. Neck and back are without deformity as well. No tenderness noted on palpation of the spinous processes. Spinous processes are midline. Cervical, thoracic, and lumbar paraspinal muscles are not tender and are without spasm. : normal external genitalia, without lesions, swelling, masses or tenderness. Musculoskeletal: Extremities, normal range of motion, non-tender, muscle strength 5/5 x 4. Negative Homans signs bilaterally on lower extremity. Distal pulses full symmetrical, no clubbing, cyanosis , bilateral lower extremity dressing clean dry intact neurovascular grossly intact Neurological: Speech is clear, alert, and oriented x 4. No motor or sensory deficit, deep tendon reflexes normal, cerebellar intact. Cranial nerves II-XII intact. Psych: Alert and or appropriate, normal affect. Vascular: Good distal pulses, which are equal x4; capillary refill less than 2 seconds. Lymphatic, no lymphadenopathy. Result Diagram: 08/19/2565408/[id number] Coagulation Studies Laboratory Tests Test 08/17/25 10:41 Prothrombin Time 12.0 SECONDS (9.0-12.0) INR International Normalized Ratio 1.2 INR Activated Partial Thromboplast Time 30 SECONDS (22-32) Coagulation Comments Problem\Assessment\Plan Assessment Complicated UTI Sepsis Acute nonbloody diarrhea Bilateral lower extremity erosive dermatitis Bilateral lower extremity cellulitis Lower extremity PVD Chronic kidney disease stage 4 used to be on hemodialysis, last hemodialysis six months ago Acute renal failure Hyperkalemia Metabolic acidosis CHF in exacerbation ejection fraction 52% Diabetes mellitus type 2 poor control Additional comorbidities, hypoalbuminemia, hyperphosphatemia, atrial fibrillation on Plavix at home, dyslipidemia, anemia hemoglobin 10.2, coronary artery disease status post CABG, generalized weakness status post fall ground level mechanical, metabolic encephalopathy, history of aortic valve and mitral valve repair Plan Correct electrolytes IV antibiotics, fluids prn Nephrology Is on the case Hyperglycemia Sliding scale Wound care consult Echocardiography completed Vascular surgeon consultation completed Additional lab work pending PT evaluation and treatment I reconciled home Medications DVT gastropathy prophylaxis addressed Sepsis Screening Reassessment Date: Aug 19, 2025 Date of Service: Aug 19, 2025 Billing Provider: SHAWNA ALMEIDA MD Common Visit Codes: [id number] INP/OBS CARE(HIGH) SHAWNA ALMEIDA MD Aug 19, 2025 18:45
[2025-08-19] MEDS: potassium Cl 20 mEq SR tablet PO PRN (19:42)
[2025-08-19] MEDS: EMPAGLIFLOZIN 10 MG TABLET PO SCH (19:57)
[2025-08-20] VITALS (8 sets, daily range): BP systolic 89–132; BP diastolic 49–72; PULSE 85–113; RESP 10–20; TEMP 97.1–98.2; O2SAT 95–100
[2025-08-20 06:16] LABS: MEAN PLATELET VOLUME 7.7 FL (7.4-10.4); RED CELL DISTRIBUTION WIDTH 18.5 % (11.5-14.5)
[2025-08-20 06:36] LABS: CREATININE 2.52 MG/DL (0.40-0.90); TOTAL CARBON DIOXIDE 31.8 MMOL/L (24-32); eCRCL 18 ML/MIN; eGFR 19 ML/MIN
[2025-08-20] MEDS: ondansetron/PF 4mg/2ml inj IV PRN (08:27)
[2025-08-20 09:11] LABS: HBSAG SCREEN Negative (Negative); HEP B CORE AB, IGM Negative (Negative)
[2025-08-20 11:15] LABS: ANTISTREPTOLYSIN O AB <20.0 IU/mL (0.0-200.0); COMPLEMENT C3, SERUM 131 mg/dL (82-167); COMPLEMENT C4, SERUM 26 mg/dL (12-38)
--- NOTE | 2025-08-20 14:09 | PROGRESS NOTE ---
Progress Note Dictate Providers to CC ~ Progress Note: This is a 69-year-old woman with a history of stage 4 chronic kidney disease, coronary artery disease status post CABG (February 2025), prior hemodialysis (last session >6 months ago), anemia, chronic bilateral lower extremity cellulitis, atrial fibrillation on clopidogrel, dyslipidemia, poorly controlled type 2 diabetes, and congestive heart failure with unknown ejection fraction. She was transferred for management of acute kidney injury (LARON) on CKD 4 and a complicated urinary tract infection. On admission, she had significant azotemia (Cr 3.7, BUN 70), hyperkalemia (K 6.5), and anasarca. Hyperkalemia has been medically managed, and her creatinine is now improving (2.75). She remains volume overloaded but is clinically stable, and dialysis has been deferred per her preference. She is on a renal diet, fluid and sodium restriction, and IV furosemide. The most likely diagnoses are LARON on CKD 4 (likely multifactorial: infection, cardiorenal syndrome, and volume overload), complicated UTI, and decompensated heart failure. Other causes of LARON such as acute glomerulonephritis or drug-induced nephrotoxicity are less likely given the clinical context and response to therapy. Antibiotic Ordered?: Yes Subjective Subjective She reports feeling better today, she is wondering when she is likely to go home, I deferred this to the primary team, nurses report no new events since last evaluation Objective Vitals Vital Signs Date Time Temp Pulse Resp B/P (MAP) Pulse Ox O2 Delivery O2 Flow Rate FiO2 08/20/25 11:15 16 08/20/25 08:00 95 Room Air 0.0 21 08/20/25 06:30 103 08/20/25 06:00 98.0 123/72 (89) Alert, oriented, appears comfortable RRR w/o murmur or JVD CTA B, no wheezes +BS, NT 2+ Edema Lab Results: 08/20/25 0517 08/20/25 0517 Coagulation Studies Laboratory Tests Test 08/17/25 10:41 Prothrombin Time 12.0 SECONDS (9.0-12.0) INR International Normalized Ratio 1.2 INR Activated Partial Thromboplast Time 30 SECONDS (22-32) Coagulation Comments Other Results I & O 08/20/25 07:00 Intake Total 1990 ml Output Total 4200 ml Balance -2210 ml Intake Oral 1750 ml Other 240 ml Output Urine Total 4200 ml Problem\Assessment\Plan Additional Plan She has advanced CKD, recent CABG, and multiple comorbidities is admitted for LARON on CKD 4, complicated UTI, and volume overload. Her renal function and hyperkalemia are improving with conservative management, and she remains clinically stable without indications for urgent dialysis. The focus remains on infection control, volume management, and optimization of her chronic conditions. 1. Acute Kidney Injury on CKD 4 (likely multifactorial: infection, cardiorenal syndrome, volume overload) The most likely etiology is a combination of pre-renal azotemia from heart failure and sepsis from UTI, superimposed on baseline CKD. Her creatinine is improving with diuresis and infection management, supporting this diagnosis. Other causes such as acute glomerulonephritis or drug-induced nephrotoxicity are less likely given the absence of hematuria, active urinary sediment, or recent nephrotoxic exposures. Continue IV furosemide for diuresis and monitor urine output and daily weights. Maintain fluid restriction at 1.5 L/day and sodium restriction at 2 g/day. Monitor renal function, electrolytes, and acid-base status daily. Defer hemodialysis unless she develops refractory volume overload, hyperkalemia, or uremic symptoms. Continue serologic evaluation for proteinuria as indicated. 2. Complicated Urinary Tract Infection The diagnosis is supported by dysuria, 3+ bacteria on urinalysis, and LARON. Her immunocompromised state (CKD, diabetes, recent surgery) increases risk for complicated UTI. Pyelonephritis or urosepsis are less likely as she is afebrile and hemodynamically stable, and her renal function is improving. Continue ceftriaxone and adjust antibiotics based on culture results. Monitor for clinical improvement and resolution of urinary symptoms. Assess for potential urinary tract obstruction if clinical status worsens. 3. Volume Overload/Decompensated Heart Failure She has diffuse anasarca, elevated BNP (8000), and a history of CHF. The most likely etiology is cardiorenal syndrome with volume overload. Other causes of edema (hepatic, nephrotic) are less likely given her cardiac history and response to diuresis. Continue IV furosemide and monitor for diuretic response. Maintain fluid and sodium restriction. Begin guideline-directed medical therapy for heart failure as tolerated (e.g., beta-kraig, SGLT2 inhibitor, consider ACEi/ARB if renal function allows). Monitor for signs of pulmonary edema or worsening heart failure. 4. Hyperkalemia (resolved) She presented with K 6.5, now improved to 3.4 after medical management. The most likely cause was LARON on CKD with decreased renal excretion, possibly exacerbated by medications and volume overload. Other causes (hemolysis, acidosis) are less likely given the clinical context and rapid response to therapy. Continue to monitor potassium closely. Avoid potassium-sparing agents and high-potassium foods. Use sodium zirconium cyclosilicate as needed for recurrent hyperkalemia. 5. Anemia of Chronic Disease/CKD Chronic anemia is likely multifactorial (CKD, chronic inflammation, possible iron deficiency). Acute blood loss is less likely as there is no evidence of bleeding. Hemolysis is unlikely without laboratory evidence. Continue to monitor hemoglobin and iron studies. Administer IV iron as indicated. Consider erythropoiesis-stimulating agent if anemia persists and iron stores are adequate. 6. Atrial Fibrillation on Clopidogrel She is on clopidogrel for atrial fibrillation, likely due to prior intolerance or contraindication to anticoagulation. The most likely diagnosis is stable atrial fibrillation. Other arrhythmias are less likely given her history and current stability. Continue clopidogrel. Monitor for bleeding, especially in the setting of renal dysfunction and diuretic use. Monitor heart rate and rhythm. 7. Type 2 Diabetes Mellitus, Poorly Controlled Poor glycemic control is certainly a risk factor for infection, LARON, and cardiovascular disease. Other causes of hyperglycemia (steroid use, stress) are less likely as she is not on steroids and is clinically stable. Continue insulin glargine and short-acting insulin as needed. Monitor blood glucose closely and adjust insulin regimen for renal function. Continue empagliflozin if tolerated and no contraindications. 8. Chronic Bilateral Lower Extremity Cellulitis History of recurrent cellulitis, but no current signs of active infection. The most likely diagnosis is chronic lymphedema with prior cellulitis. Acute infection is less likely as there is no erythema, warmth, or tenderness. Monitor for signs of new infection. Encourage leg elevation and compression as tolerated. This patient with advanced CKD, recent CABG, and multiple comorbidities is admitted for LARON on CKD 4, complicated UTI, and volume overload. Her renal function and hyperkalemia are improving with conservative management, and she remains clinically stable without indications for urgent dialysis. The focus remains on infection control, volume management, and optimization of her chronic conditions. DUDLEY RUBIO III DO Aug 20, 2025 14:09
[2025-08-20 15:10] LABS: ANTINUCLEAR ANTIBODIES Negative (Negative)
--- NOTE | 2025-08-20 17:42 | PROGRESS NOTE ---
Daily Progress Note Providers to CC ~ feels better today less pain, better appetite Central Line/PICC still needed: No Slaughter-Non Protocol Slaughter Indications Met/Not Met: F/C Indications Not Met Antibiotic Timeout Antibiotic Ordered?: Yes MRSA Education MRSA Education Provided to pt: Yes Subjective As above Objective Vital Signs Date Time Temp Pulse Resp B/P (MAP) Pulse Ox O2 Delivery O2 Flow Rate FiO2 08/20/25 17:10 16 08/20/25 15:00 97.2 95 126/61 (82) 100 Room Air 08/20/25 08:00 0.0 21 Vital signs, stable ,afebrile. Pulse Oximetry reflects adequate oxygenation. General: well developed, well nourished. Awake , alert, and oriented x4, resting comfortably in the bed, in no acute distress . Skin: Warm, dry, no pallor, no rash or petechiae. HEENT: Atraumatic, normocephalic, EOMI, anicteric sclera B; pink conjunctiva; PERRLA, normal oropharynx, moist oral and nasal mucosa. Tympanic membrane , nose , throat clear. Neck: Trachea midline. Supple, full range of motion, no JVD, bruit , hepatojugular reflex , lymphadenopathy or masses, or other lesions Cardiac: Regular rhythm, regular rate no murmurs, rubs, or gallops. Normal S1 and S2, no S3 noticed. PMI is normal. Respiratory: Equal breath sounds bilaterally, no tachypnea; lungs clear to auscultation bilaterally, no wheezing ,rub or rales, or crackles. Chest wall is symmetric and without deformity. No signs of trauma. Chest wall is nontender. No signs of respiratory distress. Resonance is normal upon percussion bilaterally. Gastrointestinal: Abdomen symmetric, non-distended, soft, non-tender, normal bowel sounds x4 quadrant, normoactive, no hepatosplenomegaly , no masses , no bruit, no flank pain bilaterally. No voluntary guarding, rebound, or rigidity. No tenderness to percussion. No pulsatile masses. Equal femoral pulses. No Sin's sign or McBurney point tenderness. Back; no CVA tenderness bilaterally, no deformities. Neck and back are without deformity as well. No tenderness noted on palpation of the spinous processes. Spinous processes are midline. Cervical, thoracic, and lumbar paraspinal muscles are not tender and are without spasm. Musculoskeletal: Extremities, normal range of motion, non-tender, muscle strength 5/5 x 4. Negative Homans signs bilaterally on lower extremity. Distal pulses full symmetrical, no clubbing, cyanosis , locally, bilateral lower extremity plus one edema mild redness mild tender to palpation Neurological: Speech is clear, alert, and oriented x 4. No motor or sensory deficit, deep tendon reflexes normal, cerebellar intact. Cranial nerves II-XII intact. Psych: Alert and or appropriate, normal affect. Vascular: Good distal pulses, which are equal x4; capillary refill less than 2 seconds. Lymphatic, no lymphadenopathy. Result Diagram: 08/20/2551608/20/25516 Coagulation Studies Laboratory Tests Test 08/17/25 10:41 Prothrombin Time 12.0 SECONDS (9.0-12.0) INR International Normalized Ratio 1.2 INR Activated Partial Thromboplast Time 30 SECONDS (22-32) Coagulation Comments Problem\Assessment\Plan Assessment Complicated UTI Sepsis Acute nonbloody diarrhea Bilateral lower extremity erosive dermatitis Bilateral lower extremity cellulitis Lower extremity PVD Chronic kidney disease stage 4 used to be on hemodialysis, last hemodialysis six months ago Acute renal failure Hyperkalemia Metabolic acidosis CHF in exacerbation ejection fraction 52% Diabetes mellitus type 2 poor control Additional comorbidities, hypoalbuminemia, hyperphosphatemia, atrial fibrillation on Plavix at home, dyslipidemia, anemia hemoglobin 10.2, coronary artery disease status post CABG, generalized weakness status post fall ground level mechanical, metabolic encephalopathy, history of aortic valve and mitral valve repair Plan Correct electrolytes IV antibiotics, fluids prn Nephrology Is on the case, appreciate assistance and expertise Hyperglycemia Sliding scale Wound care consult Echocardiography completed Vascular surgeon consultation completed Additional lab work pending PT evaluation and treatment I reconciled home Medications DVT gastropathy prophylaxis addressed Sepsis Screening Reassessment Date: Aug 20, 2025 Date of Service: Aug 20, 2025 Billing Provider: SHAWNA ALMEIDA MD Common Visit Codes: [id number] INP/OBS CARE(HIGH) SHAWNA ALMEIDA MD Aug 20, 2025 17:42
[2025-08-21] VITALS (9 sets, daily range): BP systolic 103–143; BP diastolic 45–80; PULSE 65–105; RESP 10–20; TEMP 96.5–98.5; O2SAT 95–99
[2025-08-21 06:10] LABS: MEAN PLATELET VOLUME 7.7 FL (7.4-10.4); RED CELL DISTRIBUTION WIDTH 18.7 % (11.5-14.5)
[2025-08-21 06:25] LABS: CREATININE 2.08 MG/DL (0.40-0.90); TOTAL CARBON DIOXIDE 33.6 MMOL/L (24-32); eCRCL 22 ML/MIN; eGFR 24 ML/MIN
--- NOTE | 2025-08-21 12:13 | PROGRESS NOTE ---
Progress Note Dictate Providers to CC ~ Progress Note: This is a 69-year-old woman with a history of stage 4 chronic kidney disease, coronary artery disease status post CABG (February 2025), prior hemodialysis (last session >6 months ago), anemia, chronic bilateral lower extremity cellulitis, atrial fibrillation on clopidogrel, dyslipidemia, poorly controlled type 2 diabetes, and congestive heart failure with unknown ejection fraction. She was transferred for management of acute kidney injury (LARON) on CKD 4 and a complicated urinary tract infection. On admission, she had significant azotemia (Cr 3.7, BUN 70), hyperkalemia (K 6.5), and anasarca. Hyperkalemia has been medically managed, and her creatinine is now improving (2.75). She remains volume overloaded but is clinically stable, and dialysis has been deferred per her preference. She is on a renal diet, fluid and sodium restriction, and IV furosemide. The most likely diagnoses are LARON on CKD 4 (likely multifactorial: infection, cardiorenal syndrome, and volume overload), complicated UTI, and decompensated heart failure. Other causes of LARON such as acute glomerulonephritis or drug-induced nephrotoxicity are less likely given the clinical context and response to therapy. Antibiotic Ordered?: N/A Subjective Subjective She reports doing well nurses state no acute events since last evaluation Objective Vitals Vital Signs Date Time Temp Pulse Resp B/P (MAP) Pulse Ox O2 Delivery O2 Flow Rate FiO2 08/21/25 11:21 19 08/21/25 08:00 95 Room Air 0.0 21 08/21/25 06:00 97.4 105 103/56 (72) Alert, appears comfortable RRR w/o murmur, no JVD CTAB, no wheezes +BS, NT No edema Lab Results: 08/21/25 0601 08/21/25 0601 Coagulation Studies Laboratory Tests Test 08/17/25 10:41 Prothrombin Time 12.0 SECONDS (9.0-12.0) INR International Normalized Ratio 1.2 INR Activated Partial Thromboplast Time 30 SECONDS (22-32) Coagulation Comments Other Results I & O 08/21/25 07:00 Intake Total 1500 ml Output Total 5000 ml Balance -3500 ml Intake Oral 1500 ml Output Urine Total 5000 ml Problem\Assessment\Plan Additional Plan She has advanced CKD, recent CABG, and multiple comorbidities is admitted for LARON on CKD 4, complicated UTI, and volume overload. Her renal function and hyperkalemia are improving with conservative management, and she remains clinically stable without indications for urgent dialysis. The focus remains on infection control, volume management, and optimization of her chronic conditions. 1. Acute Kidney Injury on CKD 4, Improving (likely multifactorial: infection, cardiorenal syndrome, volume overload) The most likely etiology is a combination of pre-renal azotemia from heart failure and sepsis from UTI, superimposed on baseline CKD. Her creatinine is improving with diuresis and infection management, supporting this diagnosis, creatinine today is 2.08. Other causes such as acute glomerulonephritis or drug-induced nephrotoxicity are less likely given the absence of hematuria, active urinary sediment, or recent nephrotoxic exposures. Continue IV furosemide for diuresis, decreased from 40 mg every 6 hours to 40 mg twice daily, monitor urine output and daily weights. Maintain fluid restriction at 1.5 L/day and sodium restriction at 2 g/day. Monitor renal function, electrolytes, and acid-base status daily. No dialysis unless she develops refractory (volume overload, hyperkalemia, or uremic symptoms). Awaiting Dr. Campbell's serologic evaluation for proteinuria. 2. Complicated Urinary Tract Infection The diagnosis is supported by dysuria, 3+ bacteria on urinalysis, and LARON. Her immunocompromised state (CKD, diabetes, recent surgery) increases risk for complicated UTI. Pyelonephritis or urosepsis are less likely as she is afebrile and hemodynamically stable, and her renal function is improving. Continue ceftriaxone and if necessary adjust antibiotics based on culture results. Monitor for clinical improvement and resolution of urinary symptoms, consider repeat urinalysis. Assess for potential urinary tract obstruction if clinical status worsens. 3. Volume Overload/Decompensated Heart Failure She has diffuse anasarca, elevated BNP (8000), and a history of CHF. The most likely etiology is cardiorenal syndrome with volume overload. Other causes of edema (hepatic, nephrotic) are less likely given her cardiac history and response to diuresis. Cautiously continue IV furosemide and monitor for diuretic response, avoid overdiuresis. Maintain fluid and sodium restriction. Begin guideline-directed medical therapy for heart failure as tolerated (e.g., beta-kraig, SGLT2 inhibitor, consider ACEi/ARB if renal function allows) as tolerated. Monitor for signs of both overdiuresis, pulmonary edema or worsening heart failure. 4. Hyperkalemia (resolved) She presented with K 6.5, now improved to 3.4 after medical management. The most likely cause was LARON on CKD with decreased renal excretion, possibly exacerbated by medications and volume overload. Other causes (hemolysis, acidosis) are less likely given the clinical context and rapid response to therapy. Continue to monitor potassium daily. Monitor potassium-sparing agents and high-potassium foods. Use sodium zirconium cyclosilicate Lokelma as needed for recurrent hyperkalemia. 5. Anemia of Chronic Disease/CKD Chronic anemia is likely multifactorial (CKD, chronic inflammation, possible iron deficiency). Acute blood loss is less likely as there is no evidence of bleeding. Hemolysis is unlikely without laboratory evidence. Continue to monitor hemoglobin and iron studies. Administer IV iron as indicated. Consider erythropoiesis-stimulating agent/ELY if anemia persists and iron stores are adequate. 6. Atrial Fibrillation on Clopidogrel She is on clopidogrel for atrial fibrillation, history is lacking, but likely due to prior intolerance or contraindication to anticoagulation. The most likely diagnosis is stable atrial fibrillation. Other arrhythmias are less likely given her history and current stability. Continue clopidogrel. Monitor for bleeding, especially in the setting of renal dysfunction and diuretic use. Monitor heart rate and rhythm. 7. Type 2 Diabetes Mellitus, Poorly Controlled Poor glycemic control is certainly a risk factor for infection, LARON, and cardiovascular disease. Other causes of hyperglycemia are less likely as she is not on steroids and is clinically stable. Continue insulin glargine and short-acting insulin as needed. Monitor blood glucose closely and adjust insulin regimen for renal function. Continue empagliflozin if tolerated and no contraindications. 8. Chronic Bilateral Lower Extremity Cellulitis History of recurrent cellulitis, but no current signs of active infection. The most likely diagnosis is chronic lymphedema with prior cellulitis. Acute infection is less likely as there is no erythema, warmth, or tenderness. Monitor for signs of new infection. Encourage leg elevation and compression as tolerated. DUDLEY RUBIO III DO Aug 21, 2025 12:13
[2025-08-21] MEDS: ondansetron/PF 4mg/2ml inj IV ONE (13:00)
--- NOTE | 2025-08-21 16:48 | PROGRESS NOTE ---
Daily Progress Note Providers to CC Just had an episode of vomiting ~ Central Line/PICC still needed: No Slaughter-Non Protocol Slaughter Indications Met/Not Met: F/C Indications Not Met Antibiotic Timeout Antibiotic Ordered?: Yes MRSA Education MRSA Education Provided to pt: Yes Subjective As above Objective Vital Signs Date Time Temp Pulse Resp B/P (MAP) Pulse Ox O2 Delivery O2 Flow Rate FiO2 08/21/25 12:45 16 08/21/25 11:00 97.4 88 122/60 (80) 98 Room Air 08/21/25 08:00 0.0 21 Vital signs, stable ,afebrile. Pulse Oximetry reflects adequate oxygenation. General: well developed, well nourished. Awake , alert, and oriented x4, resting comfortably in the bed, in no acute distress . Skin: Warm, dry, no pallor, no rash or petechiae. HEENT: Atraumatic, normocephalic, EOMI, anicteric sclera B; pink conjunctiva; PERRLA, normal oropharynx, moist oral and nasal mucosa. Tympanic membrane , nose , throat clear. Neck: Trachea midline. Supple, full range of motion, no JVD, bruit , hepatojugular reflex , lymphadenopathy or masses, or other lesions Cardiac: Regular rhythm, regular rate no murmurs, rubs, or gallops. Normal S1 and S2, no S3 noticed. PMI is normal. Respiratory: Equal breath sounds bilaterally, no tachypnea; lungs clear to auscultation bilaterally, no wheezing ,rub or rales, or crackles. Chest wall is symmetric and without deformity. No signs of trauma. Chest wall is nontender. No signs of respiratory distress. Resonance is normal upon percussion bilaterally. Gastrointestinal: Abdomen symmetric, non-distended, soft, non-tender, normal bowel sounds x4 quadrant, normoactive, no hepatosplenomegaly , no masses , no bruit, no flank pain bilaterally. No voluntary guarding, rebound, or rigidity. No tenderness to percussion. No pulsatile masses. Equal femoral pulses. No Sin's sign or McBurney point tenderness. Back; no CVA tenderness bilaterally, no deformities. Neck and back are without deformity as well. No tenderness noted on palpation of the spinous processes. Spinous processes are midline. Cervical, thoracic, and lumbar paraspinal muscles are not tender and are without spasm. Locally, dressing clean dry intact Musculoskeletal: Extremities, normal range of motion, non-tender, muscle strength 5/5 x 4. Negative Homans signs bilaterally on lower extremity. Distal pulses full symmetrical, no clubbing, cyanosis , edema. Neurological: Speech is clear, alert, and oriented x 4. No motor or sensory deficit, deep tendon reflexes normal, cerebellar intact. Cranial nerves II-XII intact. Psych: Alert and or appropriate, normal affect. Vascular: Good distal pulses, which are equal x4; capillary refill less than 2 seconds. Lymphatic, no lymphadenopathy. Result Diagram: 08/21/25 0608/21/25 06 Coagulation Studies Laboratory Tests Test 08/17/25 10:41 Prothrombin Time 12.0 SECONDS (9.0-12.0) INR International Normalized Ratio 1.2 INR Activated Partial Thromboplast Time 30 SECONDS (22-32) Coagulation Comments Problem\Assessment\Plan Assessment Complicated UTI Sepsis Acute nonbloody diarrhea Bilateral lower extremity erosive dermatitis Bilateral lower extremity cellulitis Lower extremity PVD Chronic kidney disease stage 4 used to be on hemodialysis, last hemodialysis six months ago Acute renal failure Hyperkalemia Metabolic acidosis CHF in exacerbation ejection fraction 52% Diabetes mellitus type 2 poor control Additional comorbidities, hypoalbuminemia, hyperphosphatemia, atrial fibrillation on Plavix at home, dyslipidemia, anemia hemoglobin 10.2, coronary artery disease status post CABG, generalized weakness status post fall ground level mechanical, metabolic encephalopathy, history of aortic valve and mitral valve repair Plan Correct electrolytes IV antibiotics, fluids prn Nephrology Is on the case, appreciate assistance and expertise Hyperglycemia Sliding scale Wound care consult\ Today had episode of vomiting, CT of the abdomen and pelvis pending Echocardiography completed Vascular surgeon consultation completed Additional lab work pending PT evaluation and treatment I reconciled home Medications DVT gastropathy prophylaxis addressed Date of Service: Aug 21, 2025 Billing Provider: SHAWNA ALMEIDA MD Common Visit Codes: [id number] INP/OBS CARE(HIGH) SHAWNA ALMEIDA MD Aug 21, 2025 16:48
--- NOTE | 2025-08-21 18:40 | RADIOLOGY REPORT ---
EXAM: CT CT CHEST ABDOMEN PELVIS INDICATION: vomiting TECHNIQUE: Volumetric multidetector CT images of the chest, abdomen and pelvis were obtained after the administration of IV contrast. All CT scans at this facility use dose modulation, iterative reconstruction, and/or weight based dosing when appropriate to reduce radiation dose to as low as reasonably achievable. COMPARISON: None FINDINGS: LOWER NECK: Unremarkable LYMPH NODES/MEDIASTINUM: No abnormal lymph nodes by CT size criteria. CARDIOVASCULAR: Normal cardiac size. No pericardial effusion. No aneurysmal dilatation of the great vessels. Coronary artery calcifications. LUNG PARENCHYMA/PLEURAL SPACE: Small right and trace left pleural effusions. No consolidation, suspicious focal airspace opacity, or suspicious nodules. CHEST WALL: Unremarkable. LIVER: Hepatomegaly. GALLBLADDER/BILIARY TREE: Surgically absent. SPLEEN: Unremarkable. PANCREAS: Unremarkable. ADRENAL GLANDS: Unremarkable KIDNEYS: No hydronephrosis. BLADDER: Circumferential bladder wall thickening, which may be seen in the setting of acute versus chronic cystitis and correlate with urinalysis. Slaughter catheter in place PELVIC ORGANS: Hysterectomy BOWEL/MESENTERY: Moderately sized sliding hiatal hernia. Stomach is decompressed. Scattered colonic diverticula. ASCITES: Trace perihepatic ascites and small volume pelvic ascites LYMPHADENOPATHY: No pathologically enlarged lymph nodes by CT size criteria VASCULATURE: No aneurysmal dilatation. ABDOMINAL WALL: Bowel containing ventral abdominal hernia with diastasis recti with estimated 5 cm neck. Body wall edema. MUSCULOSKELETAL: No acute fracture or aggressive focal osseous lesion. Multifocal degenerative change of the visualized spine. vertebral body hemangioma of the L2. IMPRESSION: 1. Small right and trace left pleural effusions. 2. Circumferential bladder wall thickening, which may be seen in the setting of acute versus chronic cystitis and correlate with urinalysis. 3. Trace perihepatic ascites and small volume pelvic ascites. 4. Bowel containing ventral abdominal hernia with diastasis recti with estimated 5 cm neck. 5. Mild cardiomegaly overall correlate for anasarca related to cardiogenic etiology. Mild body wall edema.
[2025-08-22] VITALS (8 sets, daily range): BP systolic 106–137; BP diastolic 48–77; PULSE 90–108; RESP 14–20; TEMP 97–98.8; O2SAT 97–100
[2025-08-22 06:17] LABS: MEAN PLATELET VOLUME 7.4 FL (7.4-10.4); RED CELL DISTRIBUTION WIDTH 19.0 % (11.5-14.5)
[2025-08-22 07:03] LABS: PLATELET ESTIMATE NORMAL
[2025-08-22 07:04] LABS: CREATININE 1.83 MG/DL (0.40-0.90); TOTAL CARBON DIOXIDE 35.6 MMOL/L (24-32); eCRCL 25 ML/MIN; eGFR 27 ML/MIN
--- NOTE | 2025-08-22 12:13 | PROGRESS NOTE ---
Progress Note Dictate Providers to CC ~ Central Line/PICC still needed: No Slaughter Indications Met/Not Met: F/C Indications Not Met Antibiotic Ordered?: Yes Subjective Subjective c/po pain. needs her usual pain meds. creatinien continues to get better. Objective Vitals Vital Signs Date Time Temp Pulse Resp B/P (MAP) Pulse Ox O2 Delivery O2 Flow Rate FiO2 08/22/25 06:00 93 08/22/25 06:00 97.0 14 112/55 (74) 100 Room Air 08/21/25 20:00 0.0 21 Lab Results: 08/22/25 0539 08/22/25 0539 Objective Vital Signs: As above General: Normal body habitus, no acute distress. Skin: No rashes, lumps, ulcers, blisters, purpura or petechiae HEENT: Anicteric sclera, BRIDGETT Neck: Supple and nontender without enlargement of the thyroid, or lymphadenopathy. Chest: Normal size and shape, no tenderness, CTA bilaterally Heart: Regular. No jugular venous distention, S1 and S2 heard , no gallop Abdomen: Soft and non tender no organomegaly,BS+ Extremities: 3+ pedal edema Neuro: Nonfocal. Coagulation Studies Laboratory Tests Test 08/17/25 10:41 Prothrombin Time 12.0 SECONDS (9.0-12.0) INR International Normalized Ratio 1.2 INR Activated Partial Thromboplast Time 30 SECONDS (22-32) Coagulation Comments Advance Care Planning Advanced Care plannin - 30 Minutes Problem\Assessment\Plan Problems/Diagnosis: (1) Metabolic encephalopathy Assessment & Plan: much better (2) Acute kidney injury Assessment & Plan: She has history of CKD 4. she has anasarca. We are diuresing her right now. She doesn't seem to need dialysis right away. creatinine has been holding itself. EF is 55%. Renal ADA diet. Fluid restriciton to 1.5 liters per day. Sodium restriciton to 2 g per day. NSAID avoidance is a must. (3) Hyperkalemia Assessment & Plan: getting better with diuretics. (4) Sepsis Assessment & Plan: on antibiotics. wound in her extremities are being addressed by primary team DERRELL JIN MD Aug 22, 2025 12:13
[2025-08-22] MEDS: JUVEN Smoothie Arginine/Glut./Ca2+Bmb (Juven 19.3pkt) 240ml cup PO SCH (17:30)
--- NOTE | 2025-08-22 19:01 | PROGRESS NOTE ---
Daily Progress Note Providers to CC ~ Antibiotic Timeout Antibiotic Ordered?: Yes Subjective Patient was seen in PCU dressing was placed over both legs. Patient concern over pain over legs. Patient needs physical therapy evaluation for discharge plan to home or [facility] Objective Vital Signs Date Time Temp Pulse Resp B/P (MAP) Pulse Ox O2 Delivery O2 Flow Rate FiO2 08/22/25 13:37 18 08/22/25 08:00 98 Room Air 0.0 21 08/22/25 06:00 93 08/22/25 06:00 97.0 112/55 (74) Result Diagram: 08/22/25 0539 08/22/25 0539 General-patient not in any acute distress, alert awake chronically ill-appearing HEENT-atraumatic normocephalic, neck supple without elevated JVD, no thyromegaly or carotid bruit. No lymphadenopathy bilaterally. Eyes-no icterus or pallor seen in eyes Chest- decreased breath sounds to auscultation bilaterally, breathing nonlabored no tachypnea, no wheezing, no crepitation, no crackles. Heart-S1-S2 normal, regular heart rate no murmur Abdomen bowel sounds positive on auscultation, soft nondistended nontender no guarding, no rigidity Skin/ Extremity- able to move all 4 extremities, dressing present over both legs. Neurology-grossly intact, nonfocal alert awake Psychiatry - patient is not confused or agitated cooperated during physical examination Coagulation Studies Laboratory Tests Test 08/17/25 10:41 Prothrombin Time 12.0 SECONDS (9.0-12.0) INR International Normalized Ratio 1.2 INR Activated Partial Thromboplast Time 30 SECONDS (22-32) Coagulation Comments Problem\Assessment\Plan Complicated UTI- sensitive to ciprofloxacin and levofloxacin, IV antibiotics, fluids prn Acute nonbloody diarrhea- resolved, CT of the abdomen and pelvis pending Bilateral lower extremity erosive dermatitis and cellulitis, Vascular surgeon consultation completed for PVD, Wound care consulted Metabolic acidosis, Acute renal failure on Chronic kidney disease stage 4 used to be on hemodialysis, last hemodialysis six months ago, followed by Nephrology team Dr. Fabian and Hypokalemia- replacement of potassium as per protocol CHF in exacerbation ejection fraction 52%, Echocardiography completed Diabetes mellitus type 2 poor control, hemoglobin A1c is 8.6, Hyperglycemia Sliding scale Additional comorbidities, hypoalbuminemia, hyperphosphatemia, atrial fibrillation on Plavix at home, dyslipidemia, anemia hemoglobin 10.2, coronary artery disease status post CABG, generalized weakness status post fall ground level mechanical, metabolic encephalopathy, history of aortic valve and mitral valve repair, PVD PT evaluation and treatment . reconciled home Medications . DVT gastropathy prophylaxis addressed Condition guarded we will continue to follow patient in a.m. possible discharge to home or rehab in a.m. after physical therapy. Date of Service: Aug 22, 2025 Billing Provider: LORRAINE DAWKINS MD Common Visit Codes: 51487-[id number] INP/OBS CARE(HIGH) LORRAINE DAWKINS MD Aug 22, 2025 19:01
[2025-08-22] MEDS ORDERED: HYDROmorphone inj. 0.5 MG/0.5 ML DISP.SYRIN IV PRN (19:05)
[2025-08-22 19:27] LABS: ATYPICAL PANCA <1:20 titer (Neg:<1:20); CYTOPLASMIC (C-ANCA) <1:20 titer (Neg:<1:20); PERINUCLEAR (P-ANCA) <1:20 titer (Neg:<1:20)
[2025-08-22] MEDS ORDERED: potassium Cl 40MEQ/1/2NS 520ml 520 ML IV PRN (20:45)
[2025-08-22] MEDS ORDERED: magnesium Cl slow-release 64mg tablet PO PRN (20:45)
[2025-08-22] MEDS ORDERED: potassium Cl 20 mEq SR tablet PO PRN (20:45)
[2025-08-22] MEDS ORDERED: magnesium sulf-water 4G/100mL 100 ML IV PRN (20:45)
[2025-08-22] MEDS ORDERED: magnesium sulf-water 2g/50mL 50 ML IV PRN (20:45)
[2025-08-22] MEDS: potassium Cl 20 mEq SR tablet PO PRN (22:05)
[2025-08-23 02:00] VITALS: BP 128/62; PULSE 103; RESP 12; TEMP 97.5; O2SAT 100
[2025-08-23 07:00] VITALS: BP 128/65; PULSE 100; RESP 12; TEMP 97.4; O2SAT 97
[2025-08-23] MEDS: K and/or MAG REPLACEMENT MC SCH (08:00)
[2025-08-23 08:22] VITALS: RESP 16
--- NOTE | 2025-08-23 08:29 | PROGRESS NOTE ---
Progress Note Dictate Providers to CC ~ Central Line/PICC still needed: Yes Central Line/PICC Necessity: Prolonged IV access req Slaughter Indications Met/Not Met: F/C Indications Not Met Antibiotic Ordered?: N/A Subjective Subjective The patient is slowly improving with her renal function. Urine culture 08/17 - quinolone -I, Cephalosporins - Resistant Ecoli. Sensitive to Zosyn / meropenem. I have rached out to to look into this and make a switch, and plan on iv antibiotics to be given for atleast another week. It may be worthwhile to consider ID consult to appropriately tailor the antibiotics prior to discharge. She needs LTAc for the continued iv antibiotics infusion. Renal function at baseline currently. She has Dm nephropathy and follows with [facility] already. Objective Vitals Vital Signs Date Time Temp Pulse Resp B/P (MAP) Pulse Ox O2 Delivery O2 Flow Rate FiO2 08/23/25 10:11 16 08/23/25 07:00 97.4 100 128/65 (86) 97 Room Air 08/22/25 08:00 0.0 21 Lab Results: 08/22/25 0539 08/23/25 0612 Objective Vital Signs: As above General: Normal body habitus, no acute distress. Skin: No rashes, lumps, ulcers, blisters, purpura or petechiae HEENT: Anicteric sclera, BRIDGETT Neck: Supple and nontender without enlargement of the thyroid, or lymphadenopathy. Chest: Normal size and shape, no tenderness, CTA bilaterally Heart: Regular. No jugular venous distention, S1 and S2 heard , no gallop Abdomen: Soft and non tender no organomegaly,BS+ Extremities: 3+ pedal edema Neuro: Nonfocal. Coagulation Studies Laboratory Tests Test 08/17/25 10:41 Prothrombin Time 12.0 SECONDS (9.0-12.0) INR International Normalized Ratio 1.2 INR Activated Partial Thromboplast Time 30 SECONDS (22-32) Coagulation Comments Advance Care Planning Advanced Care plannin - 30 Minutes Problem\Assessment\Plan Problems/Diagnosis: (1) Metabolic encephalopathy Assessment & Plan: much better (2) Acute kidney injury Assessment & Plan: She has history of CKD 4. Her anasarca is better. creatinine is down to 1.9. She categorically refuses to go to rehab. She has had nightmarish experience in rehab and will only go home from here. Meanwhile, she needs iv antibiotics or anything that ID recommends, so that she can be safely discharged on that. (3) Hyperkalemia Assessment & Plan: getting better with diuretics. (4) Sepsis Assessment & Plan: on antibiotics. wound in her extremities are being addressed by primary team DERRELL JIN MD Aug 23, 2025 08:29
[2025-08-23 10:51] VITALS: BP 134/55; PULSE 103; RESP 16; TEMP 97.8; O2SAT 100
[2025-08-23 12:21] LABS: MEAN PLATELET VOLUME 7.5 FL (7.4-10.4); RED CELL DISTRIBUTION WIDTH 20.5 % (11.5-14.5)
[2025-08-23] MEDS: piperacillin/tazo 3.375gm/50ml 50 ML IV SCH (12:51)
[2025-08-23 12:55] LABS: CREATININE 1.59 MG/DL (0.40-0.90); TOTAL CARBON DIOXIDE 36.3 MMOL/L (24-32); eCRCL 29 ML/MIN; eGFR 32 ML/MIN
[2025-08-23] MEDS ORDERED: amoxicillin/clavulanate potass. 1000/62.5mg TAB.SR.12h PO SCH (17:30)
--- NOTE | 2025-08-23 20:01 | DISCHARGE SUMMARY ---
Discharge Summary Providers to CC ~ Discharge Summary Admission Diagnosis: Sepsis DM [facility] Hospital Course DATE OF ADMISSION: 08/17/2025 DATE OF DISCHARGE: 08/23/2025 CBC testing done on August 23, 2025 WBC 8.3 hemoglobin 9.4 hematocrit 28.9 platelet count 215. Sed rate 51. Serum chemistry done on August 23, 2025 sodium 139 potassium 3.8 creatinine 1.59 GFR 32. Hemoglobin A1c 8.6, proBNP 8613, normal liver enzymes. Procalcitonin 0.05, TSH 5.37. Normal lipid panel. Urine culture showing E coli blood culture showed no growth after five days Patient had multiple diagnostic studies done during hospitalization which include x-ray chest, chest/abdomen/pelvic CT, echocardiogram, arterial ultrasound. Please see the details about the results in electronic records . Discharge Diagnosis\\Comment: Complicated UTI Acute nonbloody diarrhea- resolved Bilateral lower extremity erosive dermatitis and cellulitis Metabolic acidosis, Acute renal failure on Chronic kidney disease stage 4 Hypokalemia- resolved CHF in exacerbation ejection fraction 52% Diabetes mellitus type 2 poor control, hemoglobin A1c is 8.6, Operations\\Procedures: None Consultants: Dr Santana , Dr Campbell Complications: None Condition on DC: Stable Discharge Summary: As per admitting provider's history and physical note" This is a 69 years old white female with history of chronic kidney disease stage four, used to be on hemodialysis, last hemodialysis was six months ago, as of today is not on hemodialysis, history of anemia hemoglobin 10.2, metabolic acidosis, bilateral lower extremity cellulitis, atrial fibrillation on Plavix at home, dyslipidemia, elevated phosphorous, history of diabetes mellitus type 2 poor control, CHF ejection fraction unknown, hypoalbuminemia, coronary artery disease CABG, presented today to emergency department chief complaint generalized weakness associated with altered level of consciousness and diarrhea, in addition Patient presents to the emergency room as a transfer from [facility] for acute kidney injury. Patient initially presented to their facility for concerns of diarrhea been on the past week leading to weakness and falls at home. Patient was found covered in feces. Found to be significant hyperkalemia in management of hyperkalemia was initiated with improvement. Of note patient was found to be hypotensive by transfer crew he had began Levophed in route. Patient given antibiotics for cellulitis of the lower extremities. She has received 3 L of IV fluids. In emergency department patient was evaluated by And diagnosed with sepsis, acute renal failure, started on IV antibiotics, and after consultation with mail delivery supervisor, decision was made to admit patient for further evaluation and treatment . No additional complaint or concern During hospitalization patient was treated for Complicated UTI- sensitive to ciprofloxacin and levofloxacin intermittent, sensitive to IV Zosyn and meropenem, IV antibiotics, fluids prn. Patient is discharged to [facility] on IV Zosyn Acute nonbloody diarrhea- resolved, CT of the abdomen and pelvis pending Bilateral lower extremity erosive dermatitis and cellulitis, Vascular surgeon consultation completed for PVD, Wound care consulted Metabolic acidosis, Acute renal failure on Chronic kidney disease stage 4 used to be on hemodialysis, last hemodialysis six months ago, followed by Nephrology team Dr. Fabian and Hypokalemia- replacement of potassium done as per protocol CHF in exacerbation ejection fraction 52%, Echocardiography completed Diabetes mellitus type 2 poor control, hemoglobin A1c is 8.6, Hyperglycemia Sliding scale Additional comorbidities, hypoalbuminemia, hyperphosphatemia, atrial fibrillation on Plavix at home, dyslipidemia, anemia hemoglobin 10.2, coronary artery disease status post CABG, generalized weakness status post fall ground level mechanical, metabolic encephalopathy, history of aortic valve and mitral valve repair, PVD PT evaluation and treatment . reconciled home Medications . DVT gastropathy prophylaxis addressed Patient is feeling better she has been afebrile and getting discharged to rehab in stable condition. Medication reconciliation done for rehab facility. Patient is seen and examined on the day of discharge. All labs, diagnostic workup and discharge plan discussed with patient before her discharge. All questions and queries answered to the best of my professional medical knowledge. I heard patient's concerns and address appropriately. Patient was cleared by Physical therapy team for home discharge . civil manager Melissa involved in patient's discharge plan. General-patient not in any acute distress, alert awake chronically ill-appearing HEENT-atraumatic normocephalic, neck supple without elevated JVD, no thyromegaly or carotid bruit. No lymphadenopathy bilaterally. Eyes-no icterus or pallor seen in eyes Chest- decreased breath sounds to auscultation bilaterally, breathing nonlabored no tachypnea, no wheezing, no crepitation, no crackles. Heart-S1-S2 normal, regular heart rate no murmur Abdomen bowel sounds positive on auscultation, soft nondistended nontender no g uarding, no rigidity Skin/ Extremity- able to move all 4 extremities, dressing present over both legs. Neurology-grossly intact, nonfocal alert awake Psychiatry - patient is not confused or agitated cooperated during physical examination *Problems/Diagnosis: (1) Metabolic encephalopathy Status: Acute (2) Acute kidney injury Status: Acute (3) Hyperkalemia Status: Acute (4) Sepsis Status: Acute Total Time Spent on D/C: > 30 Minutes Date of Service: Aug 23, 2025 Billing Provider: LORRAINE DAWKINS MD Common Visit Codes: 11899-LOE/OBS DISCH DAY >30min LORRAINE DAWKINS MD Aug 23, 2025 19:56
== END 2025-08-23 14:10 | DRG 871 ==
LOC: ER 04:02 → ED HOLD 10:29 → PCU 3S 14:44
PROVIDERS: ADMIT Family Medicine; ATTEND Family Medicine
PROC: BW251ZZ Computerized Tomography (CT Scan) of Chest, Abdomen and Pelvis using Low Osmolar Contrast (ICD-10-PCS; 2025-08-21)
PROC: 05HF33Z Insertion of Infusion Device into Left Cephalic Vein, Percutaneous Approach (ICD-10-PCS; principal; 2025-08-22)
PROC: B54NZZA Ultrasonography of Left Upper Extremity Veins, Guidance (ICD-10-PCS; 2025-08-22)
DX: A41.9 Sepsis, unspecified organism (principal); G93.41 Metabolic encephalopathy; I50.31 Acute diastolic (congestive) heart failure; L03.116 Cellulitis of left lower limb; L03.115 Cellulitis of right lower limb; N18.4 Chronic kidney disease, stage 4 (severe); N39.0 Urinary tract infection, site not specified; N17.9 Acute kidney failure, unspecified; E78.5 Hyperlipidemia, unspecified; E87.5 Hyperkalemia; E83.39 Other disorders of phosphorus metabolism; E88.09 Other disorders of plasma-protein metabolism, not elsewhere classified; D64.9 Anemia, unspecified; I48.0 Paroxysmal atrial fibrillation; I25.10 Atherosclerotic heart disease of native coronary artery without angina pectoris; E11.51 Type 2 diabetes mellitus with diabetic peripheral angiopathy without gangrene; L30.8 Other specified dermatitis; E11.22 Type 2 diabetes mellitus with diabetic chronic kidney disease; E87.6 Hypokalemia; Z88.1 Allergy status to other antibiotic agents; Z88.5 Allergy status to narcotic agent; Z88.0 Allergy status to penicillin; Z88.8 Allergy status to other drugs, medicaments and biological substances; Z79.899 Other long term (current) drug therapy; Z79.01 Long term (current) use of anticoagulants; Z95.1 Presence of aortocoronary bypass graft
CPT/HCPCS: 36410; 36415; 71045; 71250; 74176; 76937; 80048; 80053; 80061; 80305; 81001; 82595; 82948; 83036; 83605; 83615; 83735; 83880; 84100; 84132; 84145; 84155; 84165; 84443; 84484; 85008; 85025; 85610; 85651; 85730; 86038; 86060; 86160; 86256; 86703; 86705; 87040; 87077; 87081; 87088; 87186; 87324; 87340; 87449; 93005; 93306; 93925; 94640; 94760; 96365; 96375; 97110; 97162; 97530; 99291; A6213; A6223; A6250; A6253; A6258; A6446; A6449; C1751; G0378; J0696; J1100; J1171; J1644; J1815; J1938; J2405; J2543; J3490; J7030; J7040; J7070; Q0163